=== PATIENT | male | born 1950 ===

== ENCOUNTER 2016-09-20 06:48 | Inpatient (IN) | payer MEDICARE, MEDICAID ==
[2016-09-20 06:48] VITALS: BMI 22.8
--- NOTE | 2016-09-20 08:07 | C.PDOC ---
History Of Present Illness 66 yr old male, brought in via EMS and is accompanied by family members, PMHx of dementia, presents to the ER for increasing agitation, violent behavior which start PUBLICATION DIRECTOR but has resolved now. Patient was discharged from [facility] 1 week ago and is s/p rehab for leg pain. states patient has had occasional episodes of agitation but now they are increasing and worst was PUBLICATION DIRECTOR. states the patient was hitting her and was refusing to get in to the wheel chair and EMS was called. Currently, patient is at baseline. Patient was recently treated for pneumonia. reports non productive cough, residual. Denies fever, nausea, vomiting, decrease appetite or rash. Patient was recently started on aricept. states there is no home health and they had to leave [facility] "due to insurance problems". LIMITED DUE TO DEMENTIA, CLIN COND HX VIA FAMILY VIA TRANS INCR AGITATION, VIOLENT BEHAVIOR ONSET PUBLICATION DIRECTOR, NOW RESOLVED. PT DC FROM [facility] 1 WEEK AGO S/P REHAB FOR LEG PAIN. STATES PT HAS HAD OCC AGITATION BUT NOW W INCREASING FREQ WORST PUBLICATION DIRECTOR. PT HITTING , REFUSED TO GET INTO WC. EMS CALLED. CURRENTLY @ [facility]. RECENT TX FOR PNEUMONIA. NO RECENT FEVER, NV, DEC APPETITE. +CHARGE ENTRY CLERK COUGH, RESIDUAL. RECENTLY STARTED ON ARICEPT. STATES NO HOME HEALTH, HAD TO LEAVE [facility] "DUE TO INSURANCE PROBLEMS" ROS UTO EXAM AO2, NO FOCAL NEURO DEF LUNGS POOR EFFORT NARD CTA B/L NO W/R/R REMAINDER NEG Time Seen by Provider: 09/20/16 07:28 Chief Complaint (Nursing): Medical Clearance History Per: Family () History/Exam Limitations: Clinical Condition Onset/Duration Of Symptoms: Days Past Medical History Reviewed: Historical Data, Nursing Documentation, Vital Signs Vital Signs: Last Vital Signs Temp 98.4 F 09/20/16 09:25 Pulse 71 09/20/16 09:25 Resp 19 09/20/16 09:25 BP 106/69 09/20/16 09:25 Pulse Ox 99 09/20/16 09:55 - Medical History PMH: Anxiety, Benign Prostatic Hyperplasia, CAD, Dementia, Depression, Diabetes (type 2), HTN, Hypercholesterolemia Surgical History: CABG - [facility] GROUP PSYCHOTHERAPY (12/31/15) INDIVIDUAL PSYCHOTHERAPY, COGNITIVE-BEHAVIORAL (12/31/15) Family History: States: No Known Family Hx - Social History Hx Tobacco Use: Yes (heavy smoker) Hx Alcohol Use: No Hx Substance Use: No - Immunization History Hx Tetanus Toxoid Vaccination: No Hx Influenza Vaccination: No Hx Pneumococcal Vaccination: No Review Of Systems Except As Marked, All Systems Reviewed And Found Negative. Review Of Systems: ROS cannot be obtained secondary to pt's inabilty to answer questions. Constitutional: Negative for: Fever Skin: Negative for: Rash Neurological: Positive for: Altered Mental Status Physical Exam - Physical Exam Appears: Well, Non-toxic, No Acute Distress Skin: Warm, Dry, No Rash Head: Atraumatic, Normacephalic Chest: Symmetrical, No Tenderness Cardiovascular: Rhythm Regular, No Murmur Respiratory: No Stridor, No Wheezing, Other (Poor effort. No acute respirtory disorder. ) Gastrointestinal/Abdominal: Normal Exam, Soft, No Tenderness, No Guarding, No Rebound Extremity: Normal ROM, No Swelling Neurological/Psych: Other (AO2. No focal neuro deficits. ) ED Course And Treatment - Laboratory Results Result Diagrams: 09/20/16 08:25 09/20/16 08:25 ECG: Interpreted By Me ECG Rhythm: R BBB ECG Interpretation: No Acute Changes Rate From EC O2 Sat by Pulse Oximetry: 99 Pulse Ox Interpretation: Normal - Other Rad CXR X-Ray: Viewed By Me, Read By Radiologist Interpretation: PROCEDURE: CHEST RADIOGRAPH, 1 VIEW. HISTORY: AMS. COMPARISON: 11/05/2015. FINDINGS: LUNGS: Mild venous congestion. Status post median sternotomy. A suture appears to extend into the right infrahilar region, unchanged since the prior study. Clinical correlation. PLEURA: No pneumothorax or pleural fluid seen. CARDIOVASCULAR: Normal. OSSEOUS STRUCTURES: Degenerative changes in the spine and shoulders. VISUALIZED UPPER ABDOMEN: Normal. OTHER FINDINGS: None. IMPRESSION: Mild venous congestion. Status post median sternotomy. A suture appears to extend into the right infrahilar region, unchanged since the prior study. Clinical correlation. - CT Scan/US CT - Head Other Rad Studies (CT/US): Read By Radiologist, Radiology Report Reviewed CT/US Interpretation: PROCEDURE: CT HEAD WITHOUT CONTRAST. HISTORY: Altered mental status. COMPARISON: None available. TECHNIQUE: Axial computed tomography images were obtained through the head/brain without intravenous contrast. Radiation dose: Total exam DLP = 852 mGy-cm. This CT exam was performed using one or more of the following dose reduction techniques: Automated exposure control, adjustment of the mA and/or kV according to patient size, and/or use of iterative reconstruction technique. FINDINGS: HEMORRHAGE: No intracranial hemorrhage. BRAIN: Scattered focal lucencies in the subcortical and periventricular white matter suggestive for severe chronic microvascular ischemic change. Scattered hypodensities in the right basal ganglia, right thalamus, right internal capsule as well as torres radiata on the right suggestive for lacunar infarcts. Punctate left basal ganglia lacunar infarct noted. VENTRICLES: Prominent ventricles which may be related to atrophy. CALVARIUM: Unremarkable. PARANASAL SINUSES: Prominent mucosal thickening and opacification of the left maxillary sinus. MASTOID AIR CELLS: Unremarkable as visualized. No inflammatory changes. OTHER FINDINGS: Intracranial vascular calcifications noted. Partially calcified pineal gland noted. IMPRESSION: 1. Scattered focal lucencies in the subcortical and periventricular white matter suggestive for severe chronic microvascular ischemic change. 2. Multiple focal areas of low attenuation seen within the right torres radiata, basal ganglia, internal capsule, and thalamus suggestive for lacunar infarcts. Additional small lacunar infarct seen within the left basal ganglia. 3. If focal neurologic deficit persists, consider further evaluation with MRI to exclude acute ischemic change or additional etiology. Progress - Re-Evaluation Re-evaluation Note: 09/20/16 10:06 D/W DR HARRIS WILL ADMIT EXAM UNCH PRIOR - Data Reviewed Data Reviewed: Lab, Diagnostic imaging, EKG, Old records - Continuity of Care Discussed patient case with:: Family-HIPPA compliant, Covering for PMD Medical Decision Making Medical Decision Making: PLAN: * CT - Head * CXR * EKG * VBG * CBC * CMP * Urinalysis Disposition Counseled Patient/Family Regarding: Studies Performed, Diagnosis - Disposition Disposition: HOSPITALIZED Disposition Time: 10:10 Condition: STABLE - POA Present On Arrival: None - Clinical Impression Clinical Impression: Dementia, Agitation - Scribe Statement The provider has reviewed the documentation as recorded by the Frankibscott Cook Provider Attestation: All medical record entries made by the Frankibscott were at my direction and personally dictated by me. I have reviewed the chart and agree that the record accurately reflects my personal performance of the history, physical exam, medical decision making, and the department course for this patient. I have also personally directed, reviewed, and agree with the discharge instructions and disposition. Decision To Admit - Pt Status Changed To: Hospital Disposition Of: Inpatient - Admit Certification Admit to Inpatient:: After my assessment, the patient will require hospitalization for at least two midnights. This is because of the severity of symptoms shown, intensity of services needed, and/or the medical risk in this patient being treated as an outpatient. - InPatient: Physician Admission Certification:: SEE NOTE - . Bed Request Type: Regular Admitting Physician: Lizbeth Harris Patient Diagnosis: Dementia, Agitation
[2016-09-20 08:29] LABS: BASO # 0.1 K/uL (0.0-0.2); BASO % 1.4 % (0.0-2.0); EOS # 0.3 K/uL (0.0-0.7); EOS % 4.9 % (0.0-4.0); HEMATOCRIT 43.1 % (35.0-51.0); LYMPH # 1.8 K/uL (1.0-4.3); MEAN CORPUSCULAR HEMOGLOBIN 28.5 pg (27.0-31.0); MEAN CORPUSCULAR HGB CONC 32.7 g/dL (33.0-37.0); MEAN PLATELET VOLUME 8.4 fL (7.2-11.7); MONO # 0.6 K/uL (0.0-0.8); MONO % 8.8 % (0.0-10.0); NRBC % 0.1 % (0.0-2.0); RED CELL DISTRIBUTION WIDTH 13.9 % (11.5-14.5); WHITE BLOOD COUNT 6.4 K/uL (4.8-10.8)
[2016-09-20 08:42] LABS: CHLORIDE 104 mmol/L (98-107); SODIUM 139 mmol/L (132-148)
[2016-09-20 08:43] LABS: POTASSIUM 4.7 mmol/L (3.6-5.2)
[2016-09-20 08:45] LABS: VENOUS BLOOD GAS BASE EXCESS 0.7 mmol/L (0.0-2.0); VENOUS BLOOD GAS PCO2 54 mmHg (40-60); VENOUS BLOOD PH 7.32 (7.32-7.43)
[2016-09-20 08:45] LABS: ALB/GLOB RATIO 1.1 (1.0-2.1); ALKALINE PHOSPHATASE 74 U/L (38-126); ALT/SGPT 13 U/L (21-72); AST/SGOT 19 U/L (17-59); BILIRUBIN,TOTAL 0.5 mg/dL (0.2-1.3); BLOOD UREA NITROGEN 28 mg/dL (9-20); CALCIUM 9.1 mg/dl (8.6-10.4); CARBON DIOXIDE 24 mmol/L (22-30); GFR AFRICAN-AMERICAN > 60; GLUCOSE,RANDOM 105 mg/dL (75-110); TOTAL PROTEIN 7.4 g/dL (6.3-8.3)
--- NOTE | 2016-09-20 08:55 | CT ---
PROCEDURE: CT HEAD WITHOUT CONTRAST. HISTORY: Altered mental status COMPARISON: None available. TECHNIQUE: Axial computed tomography images were obtained through the head/brain without intravenous contrast. Radiation dose: Total exam DLP = 852 mGy-cm. This CT exam was performed using one or more of the following dose reduction techniques: Automated exposure control, adjustment of the mA and/or kV according to patient size, and/or use of iterative reconstruction technique. FINDINGS: HEMORRHAGE: No intracranial hemorrhage. BRAIN: Scattered focal lucencies in the subcortical and periventricular white matter suggestive for severe chronic microvascular ischemic change. Scattered hypodensities in the right basal ganglia, right thalamus, right internal capsule as well as torres radiata on the right suggestive for lacunar infarcts. Punctate left basal ganglia lacunar infarct noted. VENTRICLES: Prominent ventricles which may be related to atrophy. CALVARIUM: Unremarkable. PARANASAL SINUSES: Prominent mucosal thickening and opacification of the left maxillary sinus. MASTOID AIR CELLS: Unremarkable as visualized. No inflammatory changes. OTHER FINDINGS: Intracranial vascular calcifications noted. Partially calcified pineal gland noted. IMPRESSION: 1. Scattered focal lucencies in the subcortical and periventricular white matter suggestive for severe chronic microvascular ischemic change. 2. Multiple focal areas of low attenuation seen within the right torres radiata, basal ganglia, internal capsule, and thalamus suggestive for lacunar infarcts. Additional small lacunar infarct seen within the left basal ganglia. 3. If focal neurologic deficit persists, consider further evaluation with MRI to exclude acute ischemic change or additional etiology.
[2016-09-20 09:11] LABS: RBC URINE 1 /hpf (0-3); URINE BACTERIA RARE (<OCC); URINE BILIRUBIN NEGATIVE (NEGATIVE); URINE BLOOD NEGATIVE (NEGATIVE); URINE COLOR Yellow (YELLOW); URINE GLUCOSE (UA) NORMAL (Normal); URINE KETONE NEGATIVE (NEGATIVE); URINE LEUKOCYTE ESTERASE NEG Leu/uL (Negative); URINE PROTEIN NEGATIVE (NEGATIVE); URINE UROBILINOGEN NORMAL mg/dL (0.2-1.0); WBC URINE < 1 /hpf (0-5)
--- NOTE | 2016-09-20 09:38 | RAD ---
PROCEDURE: CHEST RADIOGRAPH, 1 VIEW HISTORY: AMS COMPARISON: 11/05/2015 FINDINGS: LUNGS: Mild venous congestion. Status post median sternotomy. A suture appears to extend into the right infrahilar region, unchanged since the prior study. Clinical correlation. PLEURA: No pneumothorax or pleural fluid seen. CARDIOVASCULAR: Normal. OSSEOUS STRUCTURES: Degenerative changes in the spine and shoulders. VISUALIZED UPPER ABDOMEN: Normal. OTHER FINDINGS: None. IMPRESSION: Mild venous congestion. Status post median sternotomy. A suture appears to extend into the right infrahilar region, unchanged since the prior study. Clinical correlation.
--- NOTE | 2016-09-20 13:54 | CARD ---
APPROVED REPORT EKG Measurement Heart [id number] <Conclusion> Normal sinus rhythm Left axis deviation Low voltage QRS Incomplete right bundle branch block Inferior infarct, age undetermined Cannot rule out Anterior infarct, age undetermined Abnormal ECG
[2016-09-20 13:55] VITALS: RESP 20
--- NOTE | 2016-09-20 17:34 | CP.PCM.HP ---
<Lisseth Abarca - Last Filed: 09/20/16 17:41> History of Present Illness - History of Present Illness History of Present Illness: CC - Per "He was crying a lot this morning and was agitated" 66 yr old male, brought in via EMS and is accompanied by , PMHx of dementia , presents to the ER for increasing agitation, violent behavior which start CORPORATE EXECUTIVE CHEF but has resolved now. Patient was discharged from [facility] 1 week ago and is s/p rehab for leg pain. states patient has had occasional episodes of agitation but now they are increasing and worst was CORPORATE EXECUTIVE CHEF. states the patient was hitting her and was refusing to get in to the wheel chair and EMS was called. Currently, patient is at baseline. Patient was recently treated for pneumonia. reports non productive cough, residual. Denies fever, nausea, vomiting, decrease appetite or rash. Patient was recently started on aricept. states there is no home health and they had to leave [facility] "due to insurance problems". She was worried about him excessively crying in the morning and was requesting psychiatic eval. She states they saw Dr. Mcnair at [place] but do not have anyone to follow up with. Per patient is not ambulatory and he needs max assist to daily activities. He is able to feed himself. PMHx - Dementia HTN, DM2, BPH, Hyperlipidemia, dementia, CVAs (pts and unaware of this diagnosis but CT head suggests otherwise) Surg - CABG in 2008 at [facility] Meds - Trazodone 50mg PO HS, Flomax 0.4 mg PO HS, Actos 30mg PO daily, Remeron 7.5 mg PO HS, , Linagliptin/Metformin HCL 2.5mg/1000mg PO BID, Levemir 10 U SC HS, Humalog 3 U ACTID, Aricept 10mg PO HS, Lipitor 20mg PO daily, Aspirin 81 mg PO daily, Aricept 10mg PO HS Allergies - shell fish Fam Hx - father had "heart issues" Social - used to smoke all of his life 1-2 packs a day quit 2 months ago, denies alcohol use or current drug use, hx of cocaine use many years ago. 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 denies being abused/tortured. states he was jailed "because of the government". pt has a 9th grade education, is on disability. 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 Present on Admission - Present on Admission Any Indicators Present on Admission: No Review of Systems - Review of Systems Systems not reviewed;Unavailable: Acuity of Condition, Dementia Review of Systems: unable to obtain full ROS - Cardiovascular Cardiovascular: absent: Chest Pain, Chest Pain at Rest, Palpitations - Respiratory Respiratory: absent: Cough, Dyspnea, Dyspnea on Exertion - Gastrointestinal Gastrointestinal: absent: Abdominal Pain, Constipation, Diarrhea, Nausea, Vomiting Past Patient History - Past Medical History & Family History Past Medical History?: Yes - Past Social History Smoking Status: Current Some Days Smoker - CARDIAC Hx Hypercholesterolemia: Yes Hx Hypertension: Yes - PULMONARY Hx Tuberculosis: No - NEUROLOGICAL Hx Dementia: Yes - ENDOCRINE/METABOLIC Hx Endocrine Disorders: Yes Hx Diabetes Mellitus Type 2: Yes - HEMATOLOGICAL/ONCOLOGICAL Hx Human Immunodeficiency Virus (HIV): No - INTEGUMENTARY Hx Dermatological Problems: No - MUSCULOSKELETAL/RHEUMATOLOGICAL Hx Musculoskeletal Disorders: No Hx Falls: Yes - GASTROINTESTINAL Hx Gastrointestinal Disorders: Yes Hx Diarrhea: Yes Hx Vomiting: Yes - GENITOURINARY/GYNECOLOGICAL Hx Sexually Transmitted Disorders: No - PSYCHIATRIC Hx Anxiety: Yes Hx Depression: Yes Hx Substance Use: No - SURGICAL HISTORY Hx Coronary Artery Bypass Graft: Yes - ANESTHESIA Hx Anesthesia: Yes Hx Anesthesia Reactions: No Hx Malignant Hyperthermia: No Meds Allergies/Adverse Reactions: Allergies Allergy/AdvReac Type Severity Reaction Status Date / Time shellfish derived Allergy RASH Verified 08/08/16 14:36 Physical Exam - Constitutional Appears: Non-toxic, No Acute Distress, Unkempt, Cachectic, Chronically Ill - Head Exam Head Exam: ATRAUMATIC, NORMAL INSPECTION - Eye Exam Eye Exam: EOMI, PERRL Pupil Exam: NORMAL ACCOMODATION - ENT Exam ENT Exam: Mucous Membranes Moist - Respiratory Exam Respiratory Exam: Clear to Auscultation Bilateral, NORMAL BREATHING PATTERN. absent: Accessory Muscle Use, Decreased Breath Sounds, Rales, Rhonchi, Wheezes, Respiratory Distress - Cardiovascular Exam Cardiovascular Exam: REGULAR RHYTHM, +S1, +S2 - GI/Abdominal Exam GI & Abdominal Exam: Normal Bowel Sounds, Soft. absent: Distended, Firm, Guarding, Tenderness - Extremities Exam Extremities exam: Positive for: normal inspection. Negative for: calf tenderness, pedal edema - Back Exam Back exam: NORMAL INSPECTION. absent: CVA tenderness (L), CVA tenderness (R), paraspinal tenderness - Neurological Exam Neurological exam: Alert Additional comments: only oriented to self, per is baseline - Psychiatric Exam Psychiatric exam: Normal Affect, Normal Mood - Skin Skin Exam: Dry, Intact, Normal Color, Warm Results - Vital Signs Recent Vital Signs: Last Vital Signs Temp 98.2 F 09/20/16 15:00 Pulse 81 09/20/16 15:00 Resp 20 09/20/16 15:00 BP 108/65 09/20/16 15:00 Pulse Ox 95 09/20/16 15:00 - Labs Result Diagrams: 09/20/16 08:25 09/20/16 08:25 Labs: Laboratory Results - last 24 hr 09/20/16 09/20/16 13:29 16:24 POC Glucose (mg/dL) 199 H 267 H Assessment & Plan - Assessment and Plan (Free Text) Assessment: Dementia Not agitated, oriented to self only, needs placement f/u Social work f/u Psych evlacey, Dr. Morales consulted, help appreciated Remeron 7.5 mg PO HS Aricept 10mg PO HS Chest X ray negative for active disease - no evidence of infiltrate Hx CVAs pts and unaware of this diagnosis but CT head suggests otherwise Head CT - 1. Scattered focal luencies in the subcortical and periventrocular white matter suggestive for severe chronic microvascular ischemia change 2. Multiple focal fer of low attenuation seen within the right torres radiata, basal ganglia, internal capsule, and thalamus suggestive of lucanar infarcts. small infarct in left basal ganglia Seizure and aspiration precautions DM Linagliptin/Metformin HCL 2.5mg/1000mg PO BID - hold while in hospital Actos 30mg PO daily Levemir/Lantus 10 U SC HS Humalog 3 U ACTID Accuchecks ISS f/u HBA1c Hypertension Metoprolol Succinate 25mg PO daily Monitor BP Consider adding NEDA inhibitor (pt.diabetic) HLD Crestor 10mg PO HS f/u Lipid panel Hx. CABG Aspirin 81 mg PO daily BPH Flomax 0.4 mg PO HS, Prophylactic Measures Pepcid 20mg PO BID Heparin 5, 000 U SC Q8 PT/OT Social work <Winston Dale - Last Filed: 09/20/16 18:11> Results - Vital Signs Recent Vital Signs: Last Vital Signs Temp 98.2 F 09/20/16 15:00 Pulse 81 09/20/16 15:00 Resp 20 09/20/16 15:00 BP 108/65 09/20/16 15:00 Pulse Ox 95 09/20/16 15:00 - Labs Result Diagrams: 09/20/16 08:25 09/20/16 08:25 Labs: Laboratory Results - last 24 hr 09/20/16 09/20/16 13:29 16:24 POC Glucose (mg/dL) 199 H 267 H Attending/Attestation - Attestation I have personally seen and examined this patient.: Yes I have fully participated in the care of the patient.: Yes I have reviewed all pertinent clinical information: Yes Notes (Text): 09/20/16 18:10 Patient was seen and examined at bedside with the resident Patient medical record. I discussed the plan of care with the admitting resident I agree with the assessment and plan as documented by the resident.
[2016-09-20] MEDS: (Novolog) Insulin Aspart, Recombinant 100 u/ml 10 ml vial SC SCH (18:09)
[2016-09-20] MEDS: Insulin Detemir 100 units/ml Vial (Levemir) SC SCH (21:48)
[2016-09-21 07:28] LABS: BASO # 0.1 K/uL (0.0-0.2); BASO % 1.2 % (0.0-2.0); EOS # 0.3 K/uL (0.0-0.7); EOS % 3.9 % (0.0-4.0); LYMPH # 1.8 K/uL (1.0-4.3); LYMPH % 26.3 % (20.0-40.0); MEAN CORPUSCULAR HEMOGLOBIN 28.7 pg (27.0-31.0); MEAN PLATELET VOLUME 8.6 fL (7.2-11.7); MONO # 0.7 K/uL (0.0-0.8); MONO % 9.5 % (0.0-10.0); RED CELL DISTRIBUTION WIDTH 13.7 % (11.5-14.5)
[2016-09-21 07:49] LABS: CHLORIDE 106 mmol/L (98-107)
[2016-09-21 07:50] LABS: POTASSIUM 4.2 mmol/L (3.6-5.2); SODIUM 139 mmol/L (132-148)
[2016-09-21 07:52] LABS: AST/SGOT 17 U/L (17-59); BILIRUBIN,TOTAL 0.5 mg/dL (0.2-1.3); BLOOD UREA NITROGEN 25 mg/dL (9-20); CARBON DIOXIDE 24 mmol/L (22-30); CHOLESTEROL 152 mg/dL (0-199); GFR AFRICAN-AMERICAN > 60; TOTAL PROTEIN 6.8 g/dL (6.3-8.3)
[2016-09-21 07:53] LABS: ALKALINE PHOSPHATASE 78 U/L (38-126); ALT/SGPT 20 U/L (21-72); GLUCOSE,RANDOM 113 mg/dL (75-110); MAGNESIUM 1.6 mg/dL (1.6-2.3); PHOSPHOROUS 4.5 mg/dL (2.5-4.5)
[2016-09-21 08:24] LABS: THYROID STIMULATING HORMONE 1.26 mIU/L (0.46-4.68)
[2016-09-21] MEDS: (Novolog) Insulin Aspart, Recombinant 100 u/ml 10 ml vial SC SCH ×3 (08:26→17:28)
[2016-09-21] MEDS: Sodium Chloride 0.9% 1,000 ML IV SCH ×2 (11:01→21:44)
--- NOTE | 2016-09-21 12:47 | PCM.PSYCH ---
Initial Psychiatric Evaluation - Initial Psychiatric Evaluation Chief Complaint (in patient's own words): "Leave me alone" History of Present Illness and Precipitating Events: The pt is seen, chart reviewed and case discussed. The consult was requested for his cognition and mood sxs. Steam Plant Records Clerk also spoke to his , Belkis, through a geological technician. He was staying at [facility] for 4 weeks and mn'ed after "insurance denied" last Saturday. Since he was still "sick" his brought him back to ER. He is a 66 yo [place]-descent (came here in 1979) LM, with 2 adult daughters (both in [facility]), on disability. Lives with his . He was very uncooperative, evasive and irate. Plus, he was previously dx'ed with dementia and he was not fully aware of what was going on. His said that he was "very depressed" for a while and was seen by psych in [place] when he was admitted in August but meds did not help yet. He was not talking much, crying, claiming he would not get better all the time, sleeping a lot, not shaving or showering. He does NOT have a trauma hx, no drug/alcohol use and she did not hear him talk to self or say he was hearing voices or paranoid. And he was not suicidal. However, sounds like he gets delirious at times or has mood swings as he gets agitated and even hit his . Past psych hx: Outpt tx for depression and dementia. No zuleyma attempt or admission Family psych hx: depression Medical hx: Benign Prostatic Hyperplasia, CAD s/p CABG, Diabetes (type 2), HTN, Hypercholesterolemia Current Medications: Active Medications Generic Name Dose Route Start Last Admin Trade Name Daleq PRN Reason Stop Dose Admin Aspirin 81 mg 09/21/16 10:00 09/21/16 10:57 Ecotrin PO 81 mg DAILY MARCIN Administration Donepezil HCl 10 mg 09/20/16 22:00 09/20/16 21:47 Aricept PO 10 mg HS MARCIN Administration Famotidine 20 mg 09/20/16 18:00 09/21/16 10:57 Pepcid PO 20 mg BID MARCIN Administration Heparin Sodium (Porcine) 5,000 units 09/20/16 14:00 09/21/16 05:53 Heparin SC 5,000 units Q8 MARCIN Administration Sodium Chloride 1,000 mls @ 100 mls/hr 09/21/16 09:00 09/21/16 11:01 Sodium Chloride 0.9% IV 100 mls/hr .Q10H MARCIN Administration Insulin Aspart 3 unit 09/20/16 16:30 09/21/16 12:42 Novolog SC 3 unit ACTID MARCIN Administration Insulin Detemir 10 unit 09/20/16 22:00 09/20/16 21:48 Levemir SC 10 unit HS MARCIN Administration Mirtazapine 7.5 mg 09/20/16 22:00 09/20/16 21:52 Remeron PO 7.5 mg HS MARCIN Administration Pioglitazone HCl 30 mg 09/21/16 10:00 09/21/16 11:20 Actos PO 30 mg DAILY MARCIN Administration Rosuvastatin Calcium 10 mg 09/20/16 22:00 09/20/16 21:47 Crestor PO 10 mg HS MARCIN Administration Tamsulosin HCl 0.4 mg 09/20/16 22:00 09/20/16 21:47 Flomax PO 0.4 mg HS MARCIN Administration Past Psychiatric History - Past Psychiatric History Previous Treatment History: Inpatient Pertinent Medical Hx (Current Medical&Sleep Prob, Allergies): Allergies Allergy/AdvReac Type Severity Reaction Status Date / Time shellfish derived Allergy RASH Verified 08/08/16 14:36 Linagliptin/Metformin HCl [Jentadueto 2.5 mg-1000 mg Tab] 1 tab PO BID 11/05/15 Metoprolol Succinate [Toprol XL] 25 mg PO DAILY 11/05/15 Pioglitazone HCl [Actos] 30 mg PO DAILY 11/05/15 Aspirin [Ecotrin] 81 mg PO DAILY #0 tabec 01/10/16 Donepezil [Aricept] 10 mg PO HS #0 tab 01/10/16 traZODone [Desyrel] 50 mg PO HS PRN 01/11/16 Atorvastatin [Lipitor] 20 mg PO DAILY 08/08/16 Tamsulosin [Flomax] 0.4 mg PO HS 08/08/16 Insulin Detemir [Levemir] 10 units SC HS vial 08/14/16 Mirtazapine [Remeron] 7.5 mg PO HS tab 08/14/16 Review of Systems - Psychiatric Psychiatric: Abnormal Sleep Pattern, Anhedonia, Anxiety, Behavioral Changes, Change in Appetite, Confusion, Depression, Difficulty Concentrating, Irritability, Mood Swings. absent: Hallucinations, Homicidal Ideation, Suicidal Ideation Mental Status Examination - Personal Presentation Personal Presentation: Looks older than stated age - Affect Affect: Constricted - Motor Activity Motor Activity: Psychomotor Retardation - Reliability in Providing Information Reliability in Providing Information: Poor, due to altered mood, Poor, due to cognitve impairment - Speech Speech: Disorganized - Mood Mood: Depressed, Anxious - Formal Thought Process Formal Thought Process: Loosening of associations - Cognitive Functions Orientation: Person Sensorium: Drowsy Attention/Concentration: Easily distracted Abstract Thinking: [place] Estimate of Intelligence: Below average Judgement: Imparied, as evidence by: Lack of insight into illness Memory: Recent impaired, as evidence by: Inability to recall events of the day, Remote impaired as evidenced by: Inability to recall sig life events - Risk Risk: Elopement, Diminished functioning - Strength & Assets Inventory Strength & Assets Inventory: Family support - Limitations Limitations: Other DSM 5 DX - DSM 5 DSM 5 Diagnosis: Major depressive d/o - single, severe Dementia - unspecified - Recommended/Plan of Treatment Treatment Recommendations and Plan of Treatment: Depression Start Lexapro Continue remeron Support and psychoed Dementia: Continue Aricept lexapro should help Close observation Frequent support and orientation should apply for guardianship check vitamin levels, tsh, rpr... 33 min
--- NOTE | 2016-09-21 17:23 | CP.PCM.PN ---
<Lisseth Abarca - Last Filed: 09/21/16 17:20> Subjective - Date & Time of Evaluation Date of Evaluation: 09/21/16 Time of Evaluation: 08:00 - Subjective Subjective: Patient seen and examined at bedside this morning. He is oriented only to himself. He denied any chest pain, SOB, headaches, fever or chills. He had no other complaints. Complete ROS unable to obtain due to patient's mental status. He is awaiting a psych evaluation. Objective - Vital Signs/Intake and Output Vital Signs (last 24 hours): Temp Pulse Resp BP Pulse Ox 98.0 F 78 20 110/65 96 09/21/16 16:00 09/21/16 16:00 09/21/16 16:00 09/21/16 16:00 09/21/16 16:00 Intake and Output: 09/21/16 09/21/16 06:59 18:59 Intake Total 180 Balance 180 - Medications Medications: Current Medications Aspirin (Ecotrin) 81 mg PO DAILY [facility] Last Admin: 09/21/16 10:57 Dose: 81 mg Donepezil HCl (Aricept) 10 mg PO [facility] Last Admin: 09/20/16 21:47 Dose: 10 mg Escitalopram Oxalate (Lexapro) 5 mg PO DAILY [facility] Last Admin: 09/21/16 14:32 Dose: 5 mg Famotidine (Pepcid) 20 mg PO BID [facility] Last Admin: 09/21/16 10:57 Dose: 20 mg Haloperidol (Haldol) 2 mg PO Q2 PRN Heparin Sodium (Porcine) (Heparin) 5,000 units SC Q8 [facility] Last Admin: 09/21/16 14:27 Dose: 5,000 units Sodium Chloride (Sodium Chloride 0.9%) 1,000 mls @ 100 mls/hr IV .Q10H [facility] Last Admin: 09/21/16 11:01 Dose: 100 mls/hr Insulin Aspart (Novolog) 3 unit SC ACTID [facility] Last Admin: 09/21/16 12:42 Dose: 3 unit Insulin Detemir (Levemir) 10 unit SC HS [facility] Last Admin: 09/20/16 21:48 Dose: 10 unit Mirtazapine (Remeron) 7.5 mg PO [facility] Last Admin: 09/20/16 21:52 Dose: 7.5 mg Pioglitazone HCl (Actos) 30 mg PO DAILY [facility] Last Admin: 09/21/16 11:20 Dose: 30 mg Rosuvastatin Calcium (Crestor) 10 mg PO [facility] Last Admin: 09/20/16 21:47 Dose: 10 mg Tamsulosin HCl (Flomax) 0.4 mg PO [facility] Last Admin: 09/20/16 21:47 Dose: 0.4 mg - Labs Labs: 09/21/16 06:58 09/21/16 06:58 - Constitutional Appears: Non-toxic, No Acute Distress, Cachectic, Chronically Ill - Head Exam Head Exam: ATRAUMATIC, NORMAL INSPECTION - Eye Exam Eye Exam: EOMI, PERRL Pupil Exam: NORMAL ACCOMODATION - ENT Exam ENT Exam: Mucous Membranes Dry - Respiratory Exam Respiratory Exam: Clear to Ausculation Bilateral, NORMAL BREATHING PATTERN. absent: Accessory Muscle Use, Rales, Wheezes, Respiratory Distress - Cardiovascular Exam Cardiovascular Exam: REGULAR RHYTHM, +S1, +S2 - GI/Abdominal Exam GI & Abdominal Exam: Soft, Normal Bowel Sounds. absent: Distended, Firm, Guarding, Tenderness - Extremities Exam Extremities Exam: Normal Inspection. absent: Calf Tenderness - Back Exam Back Exam: NORMAL INSPECTION. absent: CVA tenderness (L), CVA tenderness (R), paraspinal tenderness - Neurological Exam Neurological Exam: Alert Additional comments: bedbond, only oriented to person - Psychiatric Exam Psychiatric exam: Depressed, Flat Affect - Skin Skin Exam: Dry, Intact, Normal Color, Warm Assessment and Plan - Assessment and Plan (Free Text) Assessment: Dementia Not agitated, oriented to self only, needs placement f/u Social work f/u Psych haile, Dr. Morales consulted, help appreciated Remeron 7.5 mg PO HS Aricept 10mg PO HS Chest X ray negative for active disease - no evidence of infiltrate Hx CVAs pts and unaware of this diagnosis but CT head suggests otherwise Head CT - 1. Scattered focal luencies in the subcortical and periventrocular white matter suggestive for severe chronic microvascular ischemia change 2. Multiple focal fer of low attenuation seen within the right torres radiata, basal ganglia, internal capsule, and thalamus suggestive of lucanar infarcts. small infarct in left basal ganglia Seizure and aspiration precautions DM Linagliptin/Metformin HCL 2.5mg/1000mg PO BID - hold while in hospital Actos 30mg PO daily Levemir/Lantus 10 U SC HS Humalog 3 U ACTID Accuchecks ISS HBA1c 8.7 Hypertension Metoprolol Succinate 25mg PO daily Monitor BP Consider adding NEDA inhibitor (pt.diabetic) HLD Crestor 10mg PO HS f/u Lipid panel Hx. CABG Aspirin 81 mg PO daily BPH Flomax 0.4 mg PO HS, Prophylactic Measures Pepcid 20mg PO BID Heparin 5, 000 U SC Q8 PT/OT Social work <Suyapa,Winston M - Last Filed: 09/21/16 17:33> Objective - Vital Signs/Intake and Output Vital Signs (last 24 hours): Temp Pulse Resp BP Pulse Ox 98.0 F 78 20 110/65 96 09/21/16 16:00 09/21/16 16:00 09/21/16 16:00 09/21/16 16:00 09/21/16 16:00 Intake and Output: 09/21/16 09/21/16 06:59 18:59 Intake Total 180 Balance 180 - Medications Medications: Current Medications Aspirin (Ecotrin) 81 mg PO DAILY [facility] Last Admin: 09/21/16 10:57 Dose: 81 mg Donepezil HCl (Aricept) 10 mg PO HS [facility] Last Admin: 09/20/16 21:47 Dose: 10 mg Escitalopram Oxalate (Lexapro) 5 mg PO DAILY [facility] Last Admin: 09/21/16 14:32 Dose: 5 mg Famotidine (Pepcid) 20 mg PO BID [facility] Last Admin: 09/21/16 17:29 Dose: 20 mg Haloperidol (Haldol) 2 mg PO Q2 PRN Heparin Sodium (Porcine) (Heparin) 5,000 units SC Q8 [facility] Last Admin: 09/21/16 14:27 Dose: 5,000 units Sodium Chloride (Sodium Chloride 0.9%) 1,000 mls @ 100 mls/hr IV .Q10H [facility] Last Admin: 09/21/16 11:01 Dose: 100 mls/hr Insulin Aspart (Novolog) 3 unit SC ACTID [facility] Last Admin: 09/21/16 17:28 Dose: 3 unit Insulin Detemir (Levemir) 10 unit SC HS [facility] Last Admin: 09/20/16 21:48 Dose: 10 unit Mirtazapine (Remeron) 7.5 mg PO HS [facility] Last Admin: 09/20/16 21:52 Dose: 7.5 mg Pioglitazone HCl (Actos) 30 mg PO DAILY [facility] Last Admin: 09/21/16 11:20 Dose: 30 mg Rosuvastatin Calcium (Crestor) 10 mg PO HS [facility] Last Admin: 09/20/16 21:47 Dose: 10 mg Tamsulosin HCl (Flomax) 0.4 mg PO HS [facility] Last Admin: 09/20/16 21:47 Dose: 0.4 mg - Labs Labs: 09/21/16 06:58 09/21/16 06:58 Attending/Attestation - Attestation I have personally seen and examined this patient.: Yes I have fully participated in the care of the patient.: Yes I have reviewed all pertinent clinical information, including history, physical exam and plan: Yes Notes (Text): 09/21/16 17:32 Patient was seen and examined at bedside with the resident Continue current management I discussed the plan of care with the resident Distress planning to subacute rehabilitation center I agree with the above history and physical and assessment/plan by the resident
[2016-09-21] MEDS: Insulin Detemir 100 units/ml Vial (Levemir) SC SCH (21:46)
[2016-09-22] MEDS: Sodium Chloride 0.9% 1,000 ML IV SCH ×2 (07:00→15:53)
[2016-09-22] MEDS: (Novolog) Insulin Aspart, Recombinant 100 u/ml 10 ml vial SC SCH ×3 (08:08→17:22)
[2016-09-22 08:16] LABS: BASO # 0.1 K/uL (0.0-0.2); BASO % 1.7 % (0.0-2.0); EOS # 0.3 K/uL (0.0-0.7); HEMATOCRIT 39.9 % (35.0-51.0); LYMPH # 1.7 K/uL (1.0-4.3); MEAN CELL VOLUME 87.3 fL (80.0-94.0); MEAN CORPUSCULAR HEMOGLOBIN 28.6 pg (27.0-31.0); MEAN CORPUSCULAR HGB CONC 32.8 g/dL (33.0-37.0); MEAN PLATELET VOLUME 8.6 fL (7.2-11.7); MONO # 0.5 K/uL (0.0-0.8); MONO % 8.5 % (0.0-10.0); RED CELL DISTRIBUTION WIDTH 14.2 % (11.5-14.5); WHITE BLOOD COUNT 6.1 K/uL (4.8-10.8)
[2016-09-22 08:37] LABS: CHLORIDE 110 mmol/L (98-107); SODIUM 144 mmol/L (132-148)
[2016-09-22 08:38] LABS: POTASSIUM 4.1 mmol/L (3.6-5.2)
[2016-09-22 08:40] LABS: ALB/GLOB RATIO 1.1 (1.0-2.1); ALKALINE PHOSPHATASE 71 U/L (38-126); AST/SGOT 17 U/L (17-59); BILIRUBIN,TOTAL 0.4 mg/dL (0.2-1.3); BLOOD UREA NITROGEN 18 mg/dL (9-20); CARBON DIOXIDE 25 mmol/L (22-30); GFR AFRICAN-AMERICAN > 60; GLUCOSE,RANDOM 99 mg/dL (75-110); TOTAL PROTEIN 6.5 g/dL (6.3-8.3)
[2016-09-22 08:41] LABS: ALT/SGPT 15 U/L (21-72); CALCIUM 8.9 mg/dl (8.6-10.4); MAGNESIUM 1.8 mg/dL (1.6-2.3); PHOSPHOROUS 3.7 mg/dL (2.5-4.5)
--- NOTE | 2016-09-22 16:24 | CP.PCM.PN ---
<Aaron Gifford H - Last Filed: 09/22/16 21:13> Subjective - Date & Time of Evaluation Date of Evaluation: 09/22/16 Time of Evaluation: 10:00 - Subjective Subjective: Dr. Dale service: Patient seen in room with present. I spoke with patient's daughter over the phone about placement issue. Unable to obtain history from patient due to his dementia. Objective - Vital Signs/Intake and Output Vital Signs (last 24 hours): Temp Pulse Resp BP Pulse Ox 98.2 F 77 20 144/75 95 09/22/16 15:00 09/22/16 15:00 09/22/16 15:00 09/22/16 15:00 09/22/16 15:00 Intake and Output: 09/22/16 09/22/16 06:59 18:59 Intake Total 2200 1100 Output Total 400 Balance 1800 1100 - Medications Medications: Current Medications Aspirin (Ecotrin) 81 mg PO DAILY [facility] Last Admin: 09/22/16 10:43 Dose: 81 mg Donepezil HCl (Aricept) 10 mg PO [facility] Last Admin: 09/21/16 21:43 Dose: 10 mg Escitalopram Oxalate (Lexapro) 5 mg PO DAILY [facility] Last Admin: 09/22/16 10:44 Dose: 5 mg Famotidine (Pepcid) 20 mg PO BID [facility] Last Admin: 09/22/16 10:43 Dose: 20 mg Haloperidol (Haldol) 2 mg PO Q2 PRN Heparin Sodium (Porcine) (Heparin) 5,000 units SC Q8 [facility] Last Admin: 09/22/16 13:28 Dose: 5,000 units Sodium Chloride (Sodium Chloride 0.9%) 1,000 mls @ 100 mls/hr IV .Q10H [facility] Last Admin: 09/22/16 15:53 Dose: 100 mls/hr Insulin Aspart (Novolog) 3 unit SC ACTID [facility] Last Admin: 09/22/16 12:12 Dose: 3 unit Insulin Detemir (Levemir) 10 unit SC HS [facility] Last Admin: 09/21/16 21:46 Dose: 10 unit Mirtazapine (Remeron) 7.5 mg PO HS [facility] Last Admin: 09/21/16 21:44 Dose: 7.5 mg Pioglitazone HCl (Actos) 30 mg PO DAILY [facility] Last Admin: 09/22/16 10:44 Dose: 30 mg Rosuvastatin Calcium (Crestor) 10 mg PO HS [facility] Last Admin: 09/21/16 21:43 Dose: 10 mg Tamsulosin HCl (Flomax) 0.4 mg PO HS [facility] Last Admin: 09/21/16 21:43 Dose: 0.4 mg - Labs Labs: 09/22/16 07:58 09/22/16 07:58 - Constitutional Appears: Non-toxic, No Acute Distress, Unkempt - Head Exam Head Exam: NORMAL INSPECTION - Eye Exam Eye Exam: Normal appearance Pupil Exam: NORMAL ACCOMODATION - Respiratory Exam Respiratory Exam: Clear to Ausculation Bilateral. absent: Rales, Rhonchi, Wheezes - Cardiovascular Exam Cardiovascular Exam: REGULAR RHYTHM, RRR, +S1, +S2. absent: Gallop, Rubs - GI/Abdominal Exam GI & Abdominal Exam: Soft, Normal Bowel Sounds. absent: Tenderness - Extremities Exam Extremities Exam: Normal Inspection. absent: Pedal Edema - Neurological Exam Neurological Exam: Alert. absent: Oriented x3 - Psychiatric Exam Psychiatric exam: Normal Affect, Normal Mood - Skin Skin Exam: Normal Color Assessment and Plan - Assessment and Plan (Free Text) Assessment: Dementia 09/22: Patient is still pending placement, monitor for agitation Not agitated, oriented to self only, needs placement f/u Social work f/u Psych Dr. Andrew be consulted, help appreciated Remeron 7.5 mg PO HS Aricept 10mg PO HS Chest X ray negative for active disease - no evidence of infiltrate Hx CVAs pts and unaware of this diagnosis but CT head suggests otherwise Head CT - 1. Scattered focal luencies in the subcortical and periventrocular white matter suggestive for severe chronic microvascular ischemia change 2. Multiple focal fer of low attenuation seen within the right torres radiata, basal ganglia, internal capsule, and thalamus suggestive of lucanar infarcts. small infarct in left basal ganglia Seizure and aspiration precautions DM Linagliptin/Metformin HCL 2.5mg/1000mg PO BID - hold while in hospital Actos 30mg PO daily Levemir/Lantus 10 U SC HS Humalog 3 U ACTID Accuchecks ISS HBA1c 8.7 Hypertension Metoprolol Succinate 25mg PO daily Monitor BP Consider adding NEDA inhibitor (pt.diabetic) HLD Crestor 10mg PO HS f/u Lipid panel Hx. CABG Aspirin 81 mg PO daily BPH Flomax 0.4 mg PO HS, Prophylactic Measures Pepcid 20mg PO BID Heparin 5, 000 U SC Q8 PT/OT Social work <Winston Dale - Last Filed: 09/23/16 14:04> Objective - Vital Signs/Intake and Output Vital Signs (last 24 hours): Temp Pulse Resp BP Pulse Ox 98.9 F 92 H 20 158/83 H 95 09/23/16 08:20 09/23/16 08:20 09/23/16 08:20 09/23/16 08:20 09/23/16 08:20 Intake and Output: 09/23/16 09/23/16 06:59 18:59 Intake Total 2150 Balance 2150 - Medications Medications: Current Medications Aspirin (Ecotrin) 81 mg PO DAILY [facility] Last Admin: 09/23/16 10:33 Dose: 81 mg Donepezil HCl (Aricept) 10 mg PO HS [facility] Last Admin: 09/22/16 21:55 Dose: 10 mg Escitalopram Oxalate (Lexapro) 5 mg PO DAILY [facility] Last Admin: 09/23/16 10:33 Dose: 5 mg Famotidine (Pepcid) 20 mg PO BID [facility] Last Admin: 09/23/16 10:33 Dose: 20 mg Haloperidol (Haldol) 2 mg PO Q2 PRN Heparin Sodium (Porcine) (Heparin) 5,000 units SC Q8 [facility] Last Admin: 09/23/16 13:36 Dose: 5,000 units Sodium Chloride (Sodium Chloride 0.9%) 1,000 mls @ 100 mls/hr IV .Q10H [facility] Last Admin: 09/23/16 11:15 Dose: Not Given Insulin Aspart (Novolog) 3 unit SC ACTID [facility] Last Admin: 09/23/16 13:08 Dose: 3 unit Insulin Detemir (Levemir) 10 unit SC HS [facility] Last Admin: 09/22/16 21:56 Dose: 10 unit Mirtazapine (Remeron) 7.5 mg PO HS [facility] Last Admin: 09/22/16 21:57 Dose: 7.5 mg Pioglitazone HCl (Actos) 30 mg PO DAILY [facility] Last Admin: 09/23/16 10:33 Dose: 30 mg Rosuvastatin Calcium (Crestor) 10 mg PO HS [facility] Last Admin: 09/22/16 21:56 Dose: 10 mg Tamsulosin HCl (Flomax) 0.4 mg PO HS [facility] Last Admin: 09/22/16 21:56 Dose: 0.4 mg - Labs Labs: 09/23/16 11:14 09/23/16 11:14 Attending/Attestation - Attestation I have personally seen and examined this patient.: Yes I have fully participated in the care of the patient.: Yes I have reviewed all pertinent clinical information, including history, physical exam and plan: Yes Notes (Text): 09/23/16 13:59 Patient was seen and examined at bedside is present at bedside Patient appears comfortable and does not appear to be in any acute distress at this time. Psych evaluation seen and appreciated Discharge planning to subacute rehabilitation center I discussed the plan of care with the resident and agree with the above history and physical and assessment/plan but the resident.
[2016-09-22] MEDS: Insulin Detemir 100 units/ml Vial (Levemir) SC SCH (21:56)
[2016-09-23] MEDS: Sodium Chloride 0.9% 1,000 ML IV SCH ×2 (04:00→11:15)
--- NOTE | 2016-09-23 04:04 | CP.PCM.PN ---
<Landon Palumbo - Last Filed: 09/23/16 07:20> Subjective - Date & Time of Evaluation Date of Evaluation: 09/23/16 Time of Evaluation: 03:59 - Subjective Subjective: PGY-1 medicine progress note for Dr. Dale's service: Patient seen and examined at bedside. Nursing reports no acute events overnight. Pt oriented to self only. Accurate ROS unobtainable due to pts condition. Objective - Vital Signs/Intake and Output Vital Signs (last 24 hours): Temp Pulse Resp BP Pulse Ox 97.5 F L 80 20 137/72 95 09/23/16 00:00 09/23/16 00:00 09/23/16 00:00 09/23/16 00:00 09/23/16 00:00 Intake and Output: 09/22/16 09/23/16 18:59 06:59 Intake Total 1100 1150 Balance 1100 1150 - Medications Medications: Current Medications Aspirin (Ecotrin) 81 mg PO DAILY [facility] Last Admin: 09/22/16 10:43 Dose: 81 mg Donepezil HCl (Aricept) 10 mg PO HS [facility] Last Admin: 09/22/16 21:55 Dose: 10 mg Escitalopram Oxalate (Lexapro) 5 mg PO DAILY [facility] Last Admin: 09/22/16 10:44 Dose: 5 mg Famotidine (Pepcid) 20 mg PO BID [facility] Last Admin: 09/22/16 17:22 Dose: 20 mg Haloperidol (Haldol) 2 mg PO Q2 PRN Heparin Sodium (Porcine) (Heparin) 5,000 units SC Q8 [facility] Last Admin: 09/22/16 21:56 Dose: 5,000 units Sodium Chloride (Sodium Chloride 0.9%) 1,000 mls @ 100 mls/hr IV .Q10H [facility] Last Admin: 09/22/16 15:53 Dose: 100 mls/hr Insulin Aspart (Novolog) 3 unit SC ACTID [facility] Last Admin: 09/22/16 17:22 Dose: 3 unit Insulin Detemir (Levemir) 10 unit SC HS [facility] Last Admin: 09/22/16 21:56 Dose: 10 unit Mirtazapine (Remeron) 7.5 mg PO HS [facility] Last Admin: 09/22/16 21:57 Dose: 7.5 mg Pioglitazone HCl (Actos) 30 mg PO DAILY [facility] Last Admin: 09/22/16 10:44 Dose: 30 mg Rosuvastatin Calcium (Crestor) 10 mg PO HS [facility] Last Admin: 09/22/16 21:56 Dose: 10 mg Tamsulosin HCl (Flomax) 0.4 mg PO HS [facility] Last Admin: 09/22/16 21:56 Dose: 0.4 mg - Labs Labs: 09/22/16 07:58 09/22/16 07:58 - Additional Findings Additional findings: - Constitutional Appears: Non-toxic, No Acute Distress, Unkempt - Head Exam Head Exam: NORMAL INSPECTION - Eye Exam Eye Exam: Normal appearance Pupil Exam: NORMAL ACCOMODATION - Respiratory Exam Respiratory Exam: Clear to Ausculation Bilateral. absent: Rales, Rhonchi, Wheezes - Cardiovascular Exam Cardiovascular Exam: REGULAR RHYTHM, RRR, +S1, +S2. absent: Gallop, Rubs - GI/Abdominal Exam GI & Abdominal Exam: Soft, Normal Bowel Sounds. absent: Tenderness - Extremities Exam Extremities Exam: Normal Inspection. absent: Pedal Edema - Neurological Exam Neurological Exam: Alert. absent: Oriented x3 - Psychiatric Exam Psychiatric exam: Normal Affect, Normal Mood - Skin Skin Exam: Normal Color Assessment and Plan - Assessment and Plan (Free Text) Plan: Dementia 09/22: Patient is still pending placement, monitor for agitation Not agitated, oriented to self only, needs placement f/u Social work Psych evlacey, Dr. Morales consulted, help appreciated - Reccs: Start Lexapro 5mg PO daily; Haldol 2mg PO Q2 PRN Remeron 7.5 mg PO HS Aricept 10mg PO HS Chest X ray negative for active disease - no evidence of infiltrate Blood Cx (09/20): negative x 48 hrs, x 2 Urine CX (09/20): Multiple species, probably contaminated Hx CVAs pts and unaware of this diagnosis but CT head suggests otherwise Head CT - 1. Scattered focal luencies in the subcortical and periventrocular white matter suggestive for severe chronic microvascular ischemia change 2. Multiple focal fer of low attenuation seen within the right torres radiata, basal ganglia, internal capsule, and thalamus suggestive of lucanar infarcts. small infarct in left basal ganglia Seizure and aspiration precautions DM Linagliptin/Metformin HCL 2.5mg/1000mg PO BID - hold while in hospital Actos 30mg PO daily Levemir/Lantus 10 U SC HS Humalog 3 U ACTID Accuchecks ISS HBA1c 8.7 Hypertension Metoprolol Succinate 25mg PO daily Monitor BP Consider adding NEDA inhibitor (pt.diabetic) HLD Crestor 10mg PO HS f/u Lipid panel Hx. CABG Aspirin 81 mg PO daily BPH Flomax 0.4 mg PO HS, Prophylactic Measures Pepcid 20mg PO BID Heparin 5, 000 U SC Q8 PT/OT Social work <Winston Dale - Last Filed: 09/23/16 14:26> Objective - Vital Signs/Intake and Output Vital Signs (last 24 hours): Temp Pulse Resp BP Pulse Ox 98.9 F 92 H 20 158/83 H 95 09/23/16 08:20 09/23/16 08:20 09/23/16 08:20 09/23/16 08:20 09/23/16 08:20 Intake and Output: 09/23/16 09/23/16 06:59 18:59 Intake Total 2150 Balance 2150 - Medications Medications: Current Medications Aspirin (Ecotrin) 81 mg PO DAILY [facility] Last Admin: 09/23/16 10:33 Dose: 81 mg Donepezil HCl (Aricept) 10 mg PO HS [facility] Last Admin: 09/22/16 21:55 Dose: 10 mg Escitalopram Oxalate (Lexapro) 5 mg PO DAILY [facility] Last Admin: 09/23/16 10:33 Dose: 5 mg Famotidine (Pepcid) 20 mg PO BID [facility] Last Admin: 09/23/16 10:33 Dose: 20 mg Haloperidol (Haldol) 2 mg PO Q2 PRN Heparin Sodium (Porcine) (Heparin) 5,000 units SC Q8 [facility] Last Admin: 09/23/16 13:36 Dose: 5,000 units Sodium Chloride (Sodium Chloride 0.9%) 1,000 mls @ 100 mls/hr IV .Q10H [facility] Last Admin: 09/23/16 11:15 Dose: Not Given Insulin Aspart (Novolog) 3 unit SC ACTID [facility] Last Admin: 09/23/16 13:08 Dose: 3 unit Insulin Detemir (Levemir) 10 unit SC HS [facility] Last Admin: 09/22/16 21:56 Dose: 10 unit Mirtazapine (Remeron) 7.5 mg PO HS [facility] Last Admin: 09/22/16 21:57 Dose: 7.5 mg Pioglitazone HCl (Actos) 30 mg PO DAILY [facility] Last Admin: 09/23/16 10:33 Dose: 30 mg Rosuvastatin Calcium (Crestor) 10 mg PO HS [facility] Last Admin: 09/22/16 21:56 Dose: 10 mg Tamsulosin HCl (Flomax) 0.4 mg PO HS [facility] Last Admin: 09/22/16 21:56 Dose: 0.4 mg - Labs Labs: 09/23/16 11:14 09/23/16 11:14 Attending/Attestation - Attestation I have personally seen and examined this patient.: Yes I have fully participated in the care of the patient.: Yes I have reviewed all pertinent clinical information, including history, physical exam and plan: Yes Notes (Text): 09/23/16 14:25 Patient was seen and examined at bedside Patient's family is at bedside Patient is resting comfortably without any acute distress Psych evaluation noted. Patient is not agitated at this time Discharge planning to subacute rehabilitation center I agree with the history and physical and assessment/plan by the resident
[2016-09-23] MEDS: (Novolog) Insulin Aspart, Recombinant 100 u/ml 10 ml vial SC SCH ×3 (09:30→17:23)
[2016-09-23 11:22] LABS: BASO # 0.1 K/uL (0.0-0.2); BASO % 1.3 % (0.0-2.0); EOS # 0.3 K/uL (0.0-0.7); EOS % 4.2 % (0.0-4.0); HEMATOCRIT 37.8 % (35.0-51.0); LYMPH # 1.5 K/uL (1.0-4.3); LYMPH % 21.9 % (20.0-40.0); MEAN CELL VOLUME 87.7 fL (80.0-94.0); MEAN CORPUSCULAR HEMOGLOBIN 28.4 pg (27.0-31.0); MEAN CORPUSCULAR HGB CONC 32.3 g/dL (33.0-37.0); MEAN PLATELET VOLUME 8.5 fL (7.2-11.7); MONO # 0.6 K/uL (0.0-0.8); MONO % 8.1 % (0.0-10.0); NRBC % 0.3 % (0.0-2.0)
[2016-09-23 11:28] LABS: CHLORIDE 110 mmol/L (98-107)
[2016-09-23 11:29] LABS: POTASSIUM 4.4 mmol/L (3.6-5.2); SODIUM 141 mmol/L (132-148)
[2016-09-23 11:31] LABS: ALKALINE PHOSPHATASE 66 U/L (38-126); AST/SGOT 14 U/L (17-59); BILIRUBIN,TOTAL 0.3 mg/dL (0.2-1.3); BLOOD UREA NITROGEN 14 mg/dL (9-20); CARBON DIOXIDE 25 mmol/L (22-30); GFR AFRICAN-AMERICAN > 60
[2016-09-23 11:32] LABS: ALT/SGPT 14 U/L (21-72); CALCIUM 8.4 mg/dl (8.6-10.4); GLUCOSE,RANDOM 213 mg/dL (75-110); MAGNESIUM 1.8 mg/dL (1.6-2.3); PHOSPHOROUS 2.9 mg/dL (2.5-4.5)
[2016-09-23] MEDS: Insulin Detemir 100 units/ml Vial (Levemir) SC SCH (21:51)
[2016-09-24 06:14] LABS: BASO # 0.1 K/uL (0.0-0.2); BASO % 1.6 % (0.0-2.0); EOS # 0.4 K/uL (0.0-0.7); EOS % 4.2 % (0.0-4.0); HEMATOCRIT 37.1 % (35.0-51.0); LYMPH # 2.1 K/uL (1.0-4.3); LYMPH % 22.8 % (20.0-40.0); MEAN CELL VOLUME 87.4 fL (80.0-94.0); MEAN CORPUSCULAR HEMOGLOBIN 28.4 pg (27.0-31.0); MEAN CORPUSCULAR HGB CONC 32.6 g/dL (33.0-37.0); MEAN PLATELET VOLUME 8.7 fL (7.2-11.7); MONO # 0.8 K/uL (0.0-0.8); MONO % 9.3 % (0.0-10.0); RED CELL DISTRIBUTION WIDTH 13.7 % (11.5-14.5); WHITE BLOOD COUNT 9.1 K/uL (4.8-10.8)
[2016-09-24 06:33] LABS: CHLORIDE 108 mmol/L (98-107); POTASSIUM 3.9 mmol/L (3.6-5.2); SODIUM 140 mmol/L (132-148)
[2016-09-24 06:35] LABS: GFR AFRICAN-AMERICAN > 60
[2016-09-24 06:36] LABS: ALB/GLOB RATIO 0.9 (1.0-2.1); ALKALINE PHOSPHATASE 68 U/L (38-126); ALT/SGPT 14 U/L (21-72); AST/SGOT 25 U/L (17-59); BILIRUBIN,TOTAL 0.4 mg/dL (0.2-1.3); BLOOD UREA NITROGEN 12 mg/dL (9-20); CALCIUM 8.2 mg/dl (8.6-10.4); CARBON DIOXIDE 26 mmol/L (22-30); GLUCOSE,RANDOM 116 mg/dL (75-110)
[2016-09-24] MEDS: (Novolog) Insulin Aspart, Recombinant 100 u/ml 10 ml vial SC SCH ×3 (08:36→17:05)
[2016-09-24] MEDS: Sodium Chloride 0.9% 1,000 ML IV SCH ×3 (08:38→21:49)
--- NOTE | 2016-09-24 11:19 | CP.PCM.PN ---
<Lisseth Abarca - Last Filed: 09/24/16 14:30> Subjective - Date & Time of Evaluation Date of Evaluation: 09/24/16 Time of Evaluation: 08:00 - Subjective Subjective: Patient seen and examined at bedside. Nursing reports no acute events overnight. Pt oriented to self only. Accurate ROS unobtainable due to pts condition. Patient wanted to be left alone so that he could sleep. Per case management we are still waiting for [facility] placement. Objective - Vital Signs/Intake and Output Vital Signs (last 24 hours): Temp Pulse Resp BP Pulse Ox 98.0 F 79 20 130/72 96 09/24/16 07:48 09/24/16 07:48 09/24/16 07:48 09/24/16 10:45 09/24/16 07:48 Intake and Output: 09/24/16 09/24/16 06:59 18:59 Intake Total 2150 Output Total 1 Balance 2149 - Medications Medications: Current Medications Aspirin (Ecotrin) 81 mg PO DAILY [facility] Last Admin: 09/24/16 10:54 Dose: 81 mg Donepezil HCl (Aricept) 10 mg PO [facility] Last Admin: 09/23/16 21:50 Dose: 10 mg Escitalopram Oxalate (Lexapro) 5 mg PO DAILY [facility] Last Admin: 09/24/16 10:54 Dose: 5 mg Famotidine (Pepcid) 20 mg PO BID [facility] Last Admin: 09/24/16 10:46 Dose: 20 mg Haloperidol (Haldol) 2 mg PO Q2 PRN Heparin Sodium (Porcine) (Heparin) 5,000 units SC Q8 [facility] Last Admin: 09/24/16 10:46 Dose: 5,000 units Insulin Aspart (Novolog) 3 unit SC ACTID [facility] Last Admin: 09/24/16 08:36 Dose: 3 unit Insulin Detemir (Levemir) 10 unit SC HS [facility] Last Admin: 09/23/16 21:51 Dose: 10 unit Mirtazapine (Remeron) 7.5 mg PO HS [facility] Last Admin: 09/23/16 21:52 Dose: 7.5 mg Pioglitazone HCl (Actos) 30 mg PO DAILY [facility] Last Admin: 09/23/16 10:33 Dose: 30 mg Rosuvastatin Calcium (Crestor) 10 mg PO [facility] Last Admin: 09/23/16 21:50 Dose: 10 mg Tamsulosin HCl (Flomax) 0.4 mg PO HS [facility] Last Admin: 09/23/16 21:51 Dose: 0.4 mg - Labs Labs: 09/24/16 06:03 09/24/16 06:03 - Constitutional Appears: Non-toxic, No Acute Distress, Older Than Stated Age, Chronically Ill - Head Exam Head Exam: ATRAUMATIC - Eye Exam Eye Exam: EOMI - ENT Exam ENT Exam: Mucous Membranes Moist - Respiratory Exam Respiratory Exam: Clear to Ausculation Bilateral, NORMAL BREATHING PATTERN. absent: Accessory Muscle Use, Decreased Breath Sounds, Wheezes, Respiratory Distress - Cardiovascular Exam Cardiovascular Exam: REGULAR RHYTHM, +S1, +S2 - GI/Abdominal Exam GI & Abdominal Exam: Soft, Normal Bowel Sounds. absent: Distended, Firm, Guarding, Tenderness - Extremities Exam Extremities Exam: Normal Inspection. absent: Calf Tenderness, Pedal Edema - Back Exam Back Exam: NORMAL INSPECTION. absent: CVA tenderness (L), CVA tenderness (R), paraspinal tenderness - Neurological Exam Neurological Exam: Alert, Awake. absent: Normal Gait, Oriented x3 - Psychiatric Exam Psychiatric exam: Normal Affect, Normal Mood - Skin Skin Exam: Dry, Intact, Normal Color, Warm Assessment and Plan - Assessment and Plan (Free Text) Assessment: Dementia 09/22: Patient is still pending placement, monitor for agitation Not agitated, oriented to self only, needs placement f/u Social work Psych Dr. Andrew be consulted, help appreciated - Reccs: Start Lexapro 5mg PO daily; Haldol 2mg PO Q2 PRN Remeron 7.5 mg PO HS Aricept 10mg PO HS Chest X ray negative for active disease - no evidence of infiltrate Blood Cx (09/20): negative x 48 hrs, x 2 Urine CX (09/20): Multiple species, probably contaminated Depression Psych Dr. Andrew be consulted, help appreciated - Reccs: Start Lexapro 5mg PO daily; Haldol 2mg PO Q2 PRN Hx CVAs pts and unaware of this diagnosis but CT head suggests otherwise Head CT - 1. Scattered focal luencies in the subcortical and periventrocular white matter suggestive for severe chronic microvascular ischemia change 2. Multiple focal fer of low attenuation seen within the right torres radiata, basal ganglia, internal capsule, and thalamus suggestive of lucanar infarcts. small infarct in left basal ganglia Seizure and aspiration precautions DM Linagliptin/Metformin HCL 2.5mg/1000mg PO BID - hold while in hospital Actos 30mg PO daily Levemir/Lantus 10 U SC HS Humalog 5 U ACTID - increased today from 3 U Accuchecks ISS HBA1c 8.7 Hypertension Metoprolol Succinate 25mg PO daily Monitor BP Consider adding NEDA inhibitor (pt.diabetic) HLD Crestor 10mg PO HS Hx. CABG Aspirin 81 mg PO daily BPH Flomax 0.4 mg PO HS, Prophylactic Measures Pepcid 20mg PO BID Heparin 5, 000 U SC Q8 PT/OT Social work <oJseyAdilson H - Last Filed: 09/24/16 15:32> Objective - Vital Signs/Intake and Output Vital Signs (last 24 hours): Temp Pulse Resp BP Pulse Ox 98.0 F 79 20 130/72 96 09/24/16 07:48 09/24/16 07:48 09/24/16 07:48 09/24/16 10:45 09/24/16 07:48 Intake and Output: 09/24/16 09/24/16 06:59 18:59 Intake Total 2150 Output Total 1 Balance 2149 - Medications Medications: Current Medications Aspirin (Ecotrin) 81 mg PO DAILY [facility] Last Admin: 09/24/16 10:54 Dose: 81 mg Donepezil HCl (Aricept) 10 mg PO HS [facility] Last Admin: 09/23/16 21:50 Dose: 10 mg Escitalopram Oxalate (Lexapro) 5 mg PO DAILY [facility] Last Admin: 09/24/16 10:54 Dose: 5 mg Famotidine (Pepcid) 20 mg PO BID [facility] Last Admin: 09/24/16 10:46 Dose: 20 mg Haloperidol (Haldol) 2 mg PO Q2 PRN Heparin Sodium (Porcine) (Heparin) 5,000 units SC Q8 [facility] Last Admin: 09/24/16 10:46 Dose: 5,000 units Insulin Aspart (Novolog) 5 unit SC ACTID [facility] Insulin Detemir (Levemir) 10 unit SC HS [facility] Last Admin: 09/23/16 21:51 Dose: 10 unit Mirtazapine (Remeron) 7.5 mg PO HS [facility] Last Admin: 09/23/16 21:52 Dose: 7.5 mg Pioglitazone HCl (Actos) 30 mg PO DAILY [facility] Last Admin: 09/24/16 10:10 Dose: 30 mg Rosuvastatin Calcium (Crestor) 10 mg PO HS [facility] Last Admin: 09/23/16 21:50 Dose: 10 mg Tamsulosin HCl (Flomax) 0.4 mg PO [facility] Last Admin: 09/23/16 21:51 Dose: 0.4 mg - Labs Labs: 09/24/16 06:03 09/24/16 06:03 Attending/Attestation - Attestation I have personally seen and examined this patient.: Yes I have fully participated in the care of the patient.: Yes I have reviewed all pertinent clinical information, including history, physical exam and plan: Yes Notes (Text): 09/24/16 15:29 Medical Attending: Patient was seen and examined by me. Agree with the above note by the resident. This is my first time meeting the patient - and I had to review previous notes and discuss with the residents. Currently waiting to see what the option are with reguards to placement. Reportedly the patient and family were at [facility] but had to leave. There is a history of dementia and some agitation. He is not always cooperative during exam. Adilson Dowling
--- NOTE | 2016-09-24 13:01 | PCM.PYCHPN ---
Psychiatric Progress Note - Psychiatric Progress Note Patient seen today, length of contact: 16 min Patient Chief Complaint: "I'm okay." Problems Identified/Issues Discussed: Patient seen, chart reviewed, case discussed with nurse. [employer] Intern service used to converse with patient. The patient is compliant with medications and reports no side effects. He is still incoherent and difficult to understand, however, he has shown improvement. Patient needs more time to stabilize. He denies depression, paranoia, suicidal ideation, however, he is evasive and guarded. has very poor insight. After care discussed, support and psychoeducation given. Medication Change: No Medical Record Reviewed: Yes Mental Status Examination - Cognitive Function Orientation: Person Memory: Impaired Attention: Poor Concentration: Poor Association: Loose Fund of Knowledge: Poor - Mood Mood: Depressed, Anxious - Affect Affect: Blunted - Speech Speech: Slurred, Soft - Formal Thought Process Formal Thought Process: Loosening of associations - Suicidal Ideation Suicidal Ideation: No - Homicidal Ideation Homicidal Ideation: No Goal/Treatment Plan - Goal/Treatment Plan Need for Continued Stay: Remain at risks for inpatient hospitalization, Discharge may exacerbated symptoms Progress Toward Problem(s) and Goals/Treatment Plan: Depression - Lexapro 5 mg PO daily - Continue remeron 7.5 mg PO HS [facility] - Support and psychoeducation Dementia: - Continue Aricept 10 mg PO HS [facility] - lexapro should help - Close observation - Frequent support and orientation - should apply for guardianship - check vitamin levels, tsh, rpr...
[2016-09-24] MEDS: Insulin Detemir 100 units/ml Vial (Levemir) SC SCH (21:48)
[2016-09-25 06:29] LABS: BASO # 0.1 K/uL (0.0-0.2); BASO % 1.3 % (0.0-2.0); EOS # 0.3 K/uL (0.0-0.7); EOS % 4.5 % (0.0-4.0); LYMPH # 1.8 K/uL (1.0-4.3); LYMPH % 23.8 % (20.0-40.0); MEAN CELL VOLUME 87.3 fL (80.0-94.0); MEAN CORPUSCULAR HEMOGLOBIN 28.5 pg (27.0-31.0); MEAN CORPUSCULAR HGB CONC 32.7 g/dL (33.0-37.0); MEAN PLATELET VOLUME 8.3 fL (7.2-11.7); MONO # 0.7 K/uL (0.0-0.8); MONO % 9.5 % (0.0-10.0); RED CELL DISTRIBUTION WIDTH 13.7 % (11.5-14.5); WHITE BLOOD COUNT 7.5 K/uL (4.8-10.8)
[2016-09-25 06:53] LABS: CHLORIDE 108 mmol/L (98-107); POTASSIUM 3.8 mmol/L (3.6-5.2); SODIUM 141 mmol/L (132-148)
[2016-09-25 06:55] LABS: AST/SGOT 21 U/L (17-59); BILIRUBIN,TOTAL 0.4 mg/dL (0.2-1.3); CARBON DIOXIDE 25 mmol/L (22-30); GFR AFRICAN-AMERICAN > 60
[2016-09-25 06:56] LABS: ALKALINE PHOSPHATASE 66 U/L (38-126); ALT/SGPT 16 U/L (21-72); BLOOD UREA NITROGEN 9 mg/dL (9-20); CALCIUM 8.2 mg/dl (8.6-10.4); GLUCOSE,RANDOM 93 mg/dL (75-110); TOTAL PROTEIN 5.8 g/dL (6.3-8.3)
--- NOTE | 2016-09-25 07:07 | CP.PCM.PN ---
<Lisseth Abarca - Last Filed: 09/25/16 10:08> Subjective - Date & Time of Evaluation Date of Evaluation: 09/25/16 Time of Evaluation: 07:25 - Subjective Subjective: Patient seen and examined at bedside. Nursing reports no acute events overnight. Pt oriented to self only. Accurate ROS unobtainable due to pts condition. Patient denied chest pain, shortness of breath or any other pain. Per case management we are still waiting for [facility] placement. Objective - Vital Signs/Intake and Output Vital Signs (last 24 hours): Temp Pulse Resp BP Pulse Ox 97.8 F 84 20 143/83 96 09/24/16 23:57 09/24/16 23:57 09/24/16 23:57 09/24/16 23:57 09/24/16 23:57 Intake and Output: 09/25/16 09/25/16 06:59 18:59 Intake Total 1970 Balance 1970 - Medications Medications: Current Medications Aspirin (Ecotrin) 81 mg PO DAILY [facility] Last Admin: 09/24/16 10:54 Dose: 81 mg Donepezil HCl (Aricept) 10 mg PO HS [facility] Last Admin: 09/24/16 21:48 Dose: 10 mg Escitalopram Oxalate (Lexapro) 5 mg PO DAILY [facility] Last Admin: 09/24/16 10:54 Dose: 5 mg Famotidine (Pepcid) 20 mg PO BID [facility] Last Admin: 09/24/16 17:05 Dose: 20 mg Haloperidol (Haldol) 2 mg PO Q2 PRN Heparin Sodium (Porcine) (Heparin) 5,000 units SC Q8 [facility] Last Admin: 09/25/16 05:32 Dose: 5,000 units Insulin Aspart (Novolog) 5 unit SC ACTID [facility] Last Admin: 09/24/16 17:05 Dose: 5 unit Insulin Detemir (Levemir) 10 unit SC HS [facility] Last Admin: 09/24/16 21:48 Dose: 10 unit Mirtazapine (Remeron) 7.5 mg PO HS [facility] Last Admin: 09/24/16 21:49 Dose: 7.5 mg Pioglitazone HCl (Actos) 30 mg PO DAILY [facility] Last Admin: 09/24/16 10:10 Dose: 30 mg Rosuvastatin Calcium (Crestor) 10 mg PO HS [facility] Last Admin: 09/24/16 21:48 Dose: 10 mg Tamsulosin HCl (Flomax) 0.4 mg PO HS [facility] Last Admin: 09/24/16 21:48 Dose: 0.4 mg - Labs Labs: 09/25/16 06:18 09/25/16 06:18 - Constitutional Appears: Non-toxic, No Acute Distress, Older Than Stated Age, Chronically Ill - Head Exam Head Exam: ATRAUMATIC, NORMAL INSPECTION - Eye Exam Eye Exam: EOMI Pupil Exam: NORMAL ACCOMODATION - ENT Exam ENT Exam: Mucous Membranes Dry - Respiratory Exam Respiratory Exam: Clear to Ausculation Bilateral, NORMAL BREATHING PATTERN. absent: Rales, Rhonchi, Wheezes, Respiratory Distress - Cardiovascular Exam Cardiovascular Exam: REGULAR RHYTHM, +S1, +S2 - GI/Abdominal Exam GI & Abdominal Exam: Soft, Normal Bowel Sounds. absent: Distended, Firm, Guarding, Tenderness - Extremities Exam Extremities Exam: Normal Inspection. absent: Calf Tenderness, Pedal Edema - Back Exam Back Exam: NORMAL INSPECTION. absent: CVA tenderness (L), CVA tenderness (R), paraspinal tenderness - Neurological Exam Neurological Exam: Awake, CN II-XII Intact. absent: Alert, Normal Gait, Oriented x3 Neuro motor strength exam: Left Upper Extremity: 4, Right Upper Extremity: 4, Left Lower Extremity: 4, Right Lower Extremity: 4 - Psychiatric Exam Psychiatric exam: Normal Affect, Normal Mood - Skin Skin Exam: Dry, Intact, Normal Color, Warm Assessment and Plan - Assessment and Plan (Free Text) Assessment: Dementia Patient is still pending placement, monitor for agitation Not agitated, oriented to self only, needs placement f/u Social work Psych Dr. Andrew be consulted, help appreciated - Reccs: Start Lexapro 5mg PO daily; Haldol 2mg PO Q2 PRN Remeron 7.5 mg PO HS Aricept 10mg PO HS Chest X ray negative for active disease - no evidence of infiltrate Blood Cx (09/20): negative Urine CX (09/20): Multiple species, probably contaminated Depression Psych Dr. Andrew be consulted, help appreciated - Reccs: Start Lexapro 5mg PO daily; Haldol 2mg PO Q2 PRN Hx CVAs pts and unaware of this diagnosis but CT head suggests otherwise Head CT - 1. Scattered focal luencies in the subcortical and periventrocular white matter suggestive for severe chronic microvascular ischemia change 2. Multiple focal fer of low attenuation seen within the right torres radiata, basal ganglia, internal capsule, and thalamus suggestive of lucanar infarcts. small infarct in left basal ganglia Seizure and aspiration precautions DM Linagliptin/Metformin HCL 2.5mg/1000mg PO BID - hold while in hospital Actos 30mg PO daily Levemir/Lantus 10 U SC HS Humalog 5 U ACTID Accuchecks ISS HBA1c 8.7 Hypertension Metoprolol Succinate 25mg PO daily Start Lisionpril 5mg PO daily Monitor BP HLD Crestor 10mg PO HS Hx. CABG Aspirin 81 mg PO daily BPH Flomax 0.4 mg PO HS, Prophylactic Measures Pepcid 20mg PO BID Heparin 5, 000 U SC Q8 PT/OT Social work <Adilson Dowling - Last Filed: 09/25/16 15:14> Objective - Vital Signs/Intake and Output Vital Signs (last 24 hours): Temp Pulse Resp BP Pulse Ox 97.4 F L 75 20 138/85 96 09/25/16 08:00 09/25/16 10:32 09/25/16 08:00 09/25/16 10:32 09/25/16 10:32 Intake and Output: 09/25/16 09/25/16 06:59 18:59 Intake Total 1970 Balance 1970 - Medications Medications: Current Medications Aspirin (Ecotrin) 81 mg PO DAILY [facility] Last Admin: 09/25/16 10:35 Dose: 81 mg Donepezil HCl (Aricept) 10 mg PO HS [facility] Last Admin: 09/24/16 21:48 Dose: 10 mg Escitalopram Oxalate (Lexapro) 5 mg PO DAILY [facility] Last Admin: 09/25/16 10:34 Dose: 5 mg Famotidine (Pepcid) 20 mg PO BID [facility] Last Admin: 09/25/16 10:38 Dose: 20 mg Haloperidol (Haldol) 2 mg PO Q2 PRN Heparin Sodium (Porcine) (Heparin) 5,000 units SC Q8 [facility] Last Admin: 09/25/16 10:35 Dose: 5,000 units Insulin Aspart (Novolog) 5 unit SC ACTID [facility] Insulin Detemir (Levemir) 10 unit SC HS [facility] Last Admin: 09/24/16 21:48 Dose: 10 unit Lisinopril (Zestril) 5 mg PO DAILY [facility] Mirtazapine (Remeron) 7.5 mg PO [facility] Last Admin: 09/24/16 21:49 Dose: 7.5 mg Pioglitazone HCl (Actos) 30 mg PO DAILY [facility] Last Admin: 09/25/16 10:34 Dose: 30 mg Rosuvastatin Calcium (Crestor) 10 mg PO [facility] Last Admin: 09/24/16 21:48 Dose: 10 mg Tamsulosin HCl (Flomax) 0.4 mg PO [facility] Last Admin: 09/24/16 21:48 Dose: 0.4 mg - Labs Labs: 09/25/16 06:18 09/25/16 06:18 Attending/Attestation - Attestation I have personally seen and examined this patient.: Yes I have fully participated in the care of the patient.: Yes I have reviewed all pertinent clinical information, including history, physical exam and plan: Yes Notes (Text): 09/25/16 15:11 Medical Attending: Patient was seen and examined by me as well/. Th
[2016-09-25] MEDS: (Novolog) Insulin Aspart, Recombinant 100 u/ml 10 ml vial SC SCH ×3 (08:39→18:05)
[2016-09-25] MEDS ORDERED: (Novolog) Insulin Aspart, Recombinant 100 u/ml 10 ml vial SC SCH (12:09)
[2016-09-25] MEDS: Insulin Detemir 100 units/ml Vial (Levemir) SC SCH (21:59)
[2016-09-25] MEDS: Sodium Chloride 0.9% 1,000 ML IV SCH (23:00)
--- NOTE | 2016-09-26 07:23 | CP.PCM.PN ---
<Lisseth Abarca - Last Filed: 09/26/16 12:00> Subjective - Date & Time of Evaluation Date of Evaluation: 09/26/16 Time of Evaluation: 07:15 - Subjective Subjective: Patient seen and examined at bedside. Nursing reports no acute events overnight. Pt oriented to self only. Accurate ROS unobtainable due to pts condition. Patient denied chest pain, shortness of breath or any other pain. Per case management we are still waiting for [facility] placement. Objective - Vital Signs/Intake and Output Vital Signs (last 24 hours): Temp Pulse Resp BP Pulse Ox 98.1 F 76 20 145/78 96 09/25/16 23:53 09/25/16 23:53 09/25/16 23:53 09/25/16 23:53 09/25/16 23:53 Intake and Output: 09/26/16 09/26/16 06:59 18:59 Intake Total 1000 Output Total 300 Balance 700 - Medications Medications: Current Medications Aspirin (Ecotrin) 81 mg PO DAILY [facility] Last Admin: 09/25/16 10:35 Dose: 81 mg Donepezil HCl (Aricept) 10 mg PO HS [facility] Last Admin: 09/25/16 21:59 Dose: 10 mg Escitalopram Oxalate (Lexapro) 5 mg PO DAILY [facility] Last Admin: 09/25/16 10:34 Dose: 5 mg Famotidine (Pepcid) 20 mg PO BID [facility] Last Admin: 09/25/16 18:00 Dose: 20 mg Haloperidol (Haldol) 2 mg PO Q2 PRN Heparin Sodium (Porcine) (Heparin) 5,000 units SC Q8 [facility] Last Admin: 09/25/16 21:59 Dose: 5,000 units Insulin Aspart (Novolog) 5 unit SC ACTID [facility] Last Admin: 09/25/16 18:05 Dose: Not Given Insulin Detemir (Levemir) 10 unit SC HS [facility] Last Admin: 09/25/16 21:59 Dose: 10 unit Lisinopril (Zestril) 5 mg PO DAILY [facility] Mirtazapine (Remeron) 7.5 mg PO HS [facility] Last Admin: 09/25/16 21:59 Dose: 7.5 mg Pioglitazone HCl (Actos) 30 mg PO DAILY [facility] Last Admin: 09/25/16 10:34 Dose: 30 mg Rosuvastatin Calcium (Crestor) 10 mg PO HS [facility] Last Admin: 09/25/16 21:59 Dose: 10 mg Tamsulosin HCl (Flomax) 0.4 mg PO HS [facility] Last Admin: 09/25/16 21:59 Dose: 0.4 mg - Labs Labs: 09/25/16 06:18 09/25/16 06:18 - Constitutional Appears: Non-toxic, No Acute Distress, Older Than Stated Age, Chronically Ill - Head Exam Head Exam: ATRAUMATIC, NORMAL INSPECTION - Eye Exam Eye Exam: EOMI, Normal appearance, PERRL - ENT Exam ENT Exam: Mucous Membranes Moist - Respiratory Exam Respiratory Exam: Clear to Ausculation Bilateral, NORMAL BREATHING PATTERN. absent: Rales, Wheezes, Respiratory Distress - Cardiovascular Exam Cardiovascular Exam: REGULAR RHYTHM. absent: +S1, +S2 - GI/Abdominal Exam GI & Abdominal Exam: Soft, Normal Bowel Sounds. absent: Distended, Firm, Guarding, Tenderness - Back Exam Back Exam: NORMAL INSPECTION. absent: CVA tenderness (L), CVA tenderness (R), paraspinal tenderness - Neurological Exam Neurological Exam: Alert, Awake. absent: Normal Gait, Oriented x3 Neuro motor strength exam: Left Upper Extremity: 5, Right Upper Extremity: 5, Left Lower Extremity: 5, Right Lower Extremity: 5 - Psychiatric Exam Psychiatric exam: Normal Affect, Normal Mood - Skin Skin Exam: Dry, Intact, Normal Color, Warm Assessment and Plan - Assessment and Plan (Free Text) Assessment: Dementia Patient is still pending placement, monitor for agitation Not agitated, oriented to self only, needs placement f/u Social work Psych Dr. Andrew be consulted, help appreciated - Reccs: Start Lexapro 5mg PO daily; Haldol 2mg PO Q2 PRN Remeron 7.5 mg PO HS Aricept 10mg PO HS Chest X ray negative for active disease - no evidence of infiltrate Blood Cx (09/20): negative Urine CX (09/20): Multiple species, probably contaminated Depression Psych Dr. Andrew be consulted, help appreciated - Reccs: Start Lexapro 5mg PO daily; Haldol 2mg PO Q2 PRN Hx CVAs pts and unaware of this diagnosis but CT head suggests otherwise Head CT - 1. Scattered focal luencies in the subcortical and periventrocular white matter suggestive for severe chronic microvascular ischemia change 2. Multiple focal fer of low attenuation seen within the right torres radiata, basal ganglia, internal capsule, and thalamus suggestive of lucanar infarcts. small infarct in left basal ganglia Seizure and aspiration precautions DM Linagliptin/Metformin HCL 2.5mg/1000mg PO BID - hold while in hospital Actos 30mg PO daily Levemir/Lantus 10 U SC HS Humalog 5 U ACTID Accuchecks ISS HBA1c 8.7 Hypertension Metoprolol Succinate 25mg PO daily Start Lisionpril 5mg PO daily Monitor BP HLD Crestor 10mg PO HS Hx. CABG Aspirin 81 mg PO daily BPH Flomax 0.4 mg PO HS, Prophylactic Measures Pepcid 20mg PO BID Heparin 5, 000 U SC Q8 PT/OT Social work <Adilson Dowling - Last Filed: 09/26/16 14:53> Objective - Vital Signs/Intake and Output Vital Signs (last 24 hours): Temp Pulse Resp BP Pulse Ox 97.8 F 81 20 132/77 96 09/26/16 07:44 09/26/16 07:44 09/26/16 07:44 09/26/16 07:44 09/26/16 07:44 Intake and Output: 09/26/16 09/26/16 06:59 18:59 Intake Total 1000 Output Total 300 Balance 700 - Medications Medications: Current Medications Aspirin (Ecotrin) 81 mg PO DAILY [facility] Last Admin: 09/26/16 09:17 Dose: 81 mg Donepezil HCl (Aricept) 10 mg PO HS [facility] Last Admin: 09/25/16 21:59 Dose: 10 mg Escitalopram Oxalate (Lexapro) 5 mg PO DAILY [facility] Last Admin: 09/26/16 09:18 Dose: 5 mg Famotidine (Pepcid) 20 mg PO BID [facility] Last Admin: 09/26/16 09:17 Dose: 20 mg Haloperidol (Haldol) 2 mg PO Q2 PRN Heparin Sodium (Porcine) (Heparin) 5,000 units SC Q8 [facility] Last Admin: 09/26/16 12:59 Dose: 5,000 units Insulin Aspart (Novolog) 5 unit SC ACTID [facility] Last Admin: 09/26/16 12:48 Dose: Not Given Insulin Detemir (Levemir) 10 unit SC HS [facility] Last Admin: 09/25/16 21:59 Dose: 10 unit Lisinopril (Zestril) 5 mg PO DAILY [facility] Last Admin: 09/26/16 09:17 Dose: 5 mg Mirtazapine (Remeron) 7.5 mg PO [facility] Last Admin: 09/25/16 21:59 Dose: 7.5 mg Pioglitazone HCl (Actos) 30 mg PO DAILY [facility] Last Admin: 09/26/16 10:53 Dose: 30 mg Rosuvastatin Calcium (Crestor) 10 mg PO HS [facility] Last Admin: 09/25/16 21:59 Dose: 10 mg Tamsulosin HCl (Flomax) 0.4 mg PO HS [facility] Last Admin: 09/25/16 21:59 Dose: 0.4 mg - Labs Labs: 09/26/16 07:41 09/26/16 07:41 Attending/Attestation - Attestation I have personally seen and examined this patient.: Yes I have fully participated in the care of the patient.: Yes I have reviewed all pertinent clinical information, including history, physical exam and plan: Yes Notes (Text): Medical attending: Patient was seen and examined by me, agree with the above note by site medical director. At this time were still waiting on placement for the patient. Per my discussion with the caseworkers still searching for place at this time they've been in communication with the patient's as well. I'm told that earlier in the morning he was more awake and alert and that he is eating quite well. However when I saw him he appeared to be almost ignoring me. He did not want to interact with me during physical exam. He does not appear to be in any acute distress however I don't believe that he'll be able to walk again at least I have not been told that he's been walking or observed walking while he's been here. Thank you very much, as mentioned before at this time were waiting on placement Adilson Dowling
[2016-09-26 07:59] LABS: BASO # 0.1 K/uL (0.0-0.2); BASO % 1.3 % (0.0-2.0); EOS # 0.4 K/uL (0.0-0.7); EOS % 4.5 % (0.0-4.0); HEMATOCRIT 36.7 % (35.0-51.0); LYMPH # 1.8 K/uL (1.0-4.3); MEAN CELL VOLUME 87.5 fL (80.0-94.0); MEAN CORPUSCULAR HEMOGLOBIN 28.4 pg (27.0-31.0); MEAN CORPUSCULAR HGB CONC 32.5 g/dL (33.0-37.0); MEAN PLATELET VOLUME 8.2 fL (7.2-11.7); MONO # 0.8 K/uL (0.0-0.8); MONO % 9.8 % (0.0-10.0); RED CELL DISTRIBUTION WIDTH 13.6 % (11.5-14.5); WHITE BLOOD COUNT 8.2 K/uL (4.8-10.8)
[2016-09-26] MEDS: (Novolog) Insulin Aspart, Recombinant 100 u/ml 10 ml vial SC SCH ×4 (07:59→17:42)
[2016-09-26 08:09] LABS: CHLORIDE 112 mmol/L (98-107)
[2016-09-26 08:10] LABS: POTASSIUM 3.8 mmol/L (3.6-5.2); SODIUM 142 mmol/L (132-148)
[2016-09-26 08:11] LABS: GFR AFRICAN-AMERICAN > 60
[2016-09-26 08:12] LABS: ALKALINE PHOSPHATASE 62 U/L (38-126); AST/SGOT 22 U/L (17-59); BILIRUBIN,TOTAL 0.5 mg/dL (0.2-1.3); BLOOD UREA NITROGEN 9 mg/dL (9-20); CARBON DIOXIDE 25 mmol/L (22-30)
[2016-09-26 08:13] LABS: ALT/SGPT 19 U/L (21-72); CALCIUM 8.6 mg/dl (8.6-10.4); GLUCOSE,RANDOM 90 mg/dL (75-110); MAGNESIUM 1.7 mg/dL (1.6-2.3)
[2016-09-26] MEDS: Sodium Chloride 0.9% 1,000 ML IV SCH (09:20)
--- NOTE | 2016-09-26 10:20 | RAD ---
Chest x-ray single frontal view History: Cough. Comparison: None available. Findings: Patchy increased markings at both lung bases with associated bilateral pleural effusions. More linear consolidative changes at the right midlung zone and right lung base. Venous congestion. Status post median sternotomy. Sternal wires project over the right hilar region, possibly displaced. Clinical correlation. Degenerative changes in the spine and shoulders. Impression: Patchy increased markings at both lung bases with associated bilateral pleural effusions. More linear consolidative changes at the right midlung zone and right lung base. Venous congestion. Status post median sternotomy. Sternal wires project over the right hilar region, possibly displaced. Clinical correlation.
[2016-09-26] MEDS: Insulin Detemir 100 units/ml Vial (Levemir) SC SCH (21:33)
--- NOTE | 2016-09-27 07:18 | CP.PCM.PN ---
<Lisseth Abarca - Last Filed: 09/27/16 13:07> Subjective - Date & Time of Evaluation Date of Evaluation: 09/27/16 Time of Evaluation: 07:35 - Subjective Subjective: Patient seen and examined at bedside. Nursing reports no acute events overnight. Pt oriented to self only. Accurate ROS unobtainable due to pts condition. Patient denied chest pain, shortness of breath or any other pain. Per case management we are still waiting for [facility] placement. Objective - Vital Signs/Intake and Output Vital Signs (last 24 hours): Temp Pulse Resp BP Pulse Ox 99.2 F 78 20 132/77 95 09/27/16 01:01 09/27/16 01:01 09/27/16 01:01 09/27/16 01:01 09/27/16 01:01 Intake and Output: 09/27/16 09/27/16 06:59 18:59 Intake Total 0 Output Total 150 Balance -150 - Medications Medications: Current Medications Aspirin (Ecotrin) 81 mg PO DAILY [facility] Last Admin: 09/26/16 09:17 Dose: 81 mg Donepezil HCl (Aricept) 10 mg PO HS [facility] Last Admin: 09/26/16 21:32 Dose: 10 mg Escitalopram Oxalate (Lexapro) 5 mg PO DAILY [facility] Last Admin: 09/26/16 09:18 Dose: 5 mg Famotidine (Pepcid) 20 mg PO BID [facility] Last Admin: 09/26/16 17:42 Dose: 20 mg Haloperidol (Haldol) 2 mg PO Q2 PRN Heparin Sodium (Porcine) (Heparin) 5,000 units SC Q8 [facility] Last Admin: 09/27/16 05:32 Dose: 5,000 units Insulin Aspart (Novolog) 5 unit SC ACTID [facility] Last Admin: 09/26/16 17:42 Dose: 5 unit Insulin Detemir (Levemir) 10 unit SC HS [facility] Last Admin: 09/26/16 21:33 Dose: 10 unit Lisinopril (Zestril) 5 mg PO DAILY [facility] Last Admin: 09/26/16 09:17 Dose: 5 mg Mirtazapine (Remeron) 7.5 mg PO HS [facility] Last Admin: 09/26/16 21:32 Dose: 7.5 mg Pioglitazone HCl (Actos) 30 mg PO DAILY [facility] Last Admin: 09/26/16 10:53 Dose: 30 mg Rosuvastatin Calcium (Crestor) 10 mg PO HS [facility] Last Admin: 09/26/16 21:32 Dose: 10 mg Tamsulosin HCl (Flomax) 0.4 mg PO HS [facility] Last Admin: 09/26/16 21:32 Dose: 0.4 mg - Labs Labs: 09/26/16 07:41 09/26/16 07:41 - Constitutional Appears: Non-toxic, No Acute Distress, Unkempt, Older Than Stated Age, Chronically Ill - Head Exam Head Exam: ATRAUMATIC, NORMAL INSPECTION - Eye Exam Eye Exam: EOMI, Normal appearance, PERRL Pupil Exam: NORMAL ACCOMODATION - ENT Exam ENT Exam: Mucous Membranes Moist - Respiratory Exam Respiratory Exam: Clear to Ausculation Bilateral, NORMAL BREATHING PATTERN. absent: Accessory Muscle Use, Rales, Rhonchi, Wheezes, Respiratory Distress - Cardiovascular Exam Cardiovascular Exam: REGULAR RHYTHM, +S1, +S2 - GI/Abdominal Exam GI & Abdominal Exam: Soft, Normal Bowel Sounds. absent: Distended, Guarding, Tenderness - Extremities Exam Extremities Exam: Normal Inspection. absent: Calf Tenderness, Pedal Edema - Back Exam Back Exam: NORMAL INSPECTION. absent: CVA tenderness (L), CVA tenderness (R), paraspinal tenderness - Neurological Exam Neurological Exam: Alert, Awake. absent: Normal Gait, Oriented x3 - Psychiatric Exam Psychiatric exam: Depressed, Flat Affect, Normal Affect, Normal Mood - Skin Skin Exam: Dry, Intact, Normal Color, Warm Assessment and Plan - Assessment and Plan (Free Text) Assessment: Dementia Patient is still pending placement, monitor for agitation Not agitated, oriented to self only, needs placement f/u Social work Psych Dr. Andrew be consulted, help appreciated - Reccs: Start Lexapro 5mg PO daily; Haldol 2mg PO Q2 PRN Remeron 7.5 mg PO HS Aricept 10mg PO HS Chest X ray negative for active disease - no evidence of infiltrate Blood Cx (09/20): negative Urine CX (09/20): Multiple species, probably contaminated Depression Psych Dr. Andrew be consulted, help appreciated - Reccs: Start Lexapro 5mg PO daily; Haldol 2mg PO Q2 PRN Hx CVAs pts and unaware of this diagnosis but CT head suggests otherwise Head CT - 1. Scattered focal luencies in the subcortical and periventrocular white matter suggestive for severe chronic microvascular ischemia change 2. Multiple focal fer of low attenuation seen within the right torres radiata, basal ganglia, internal capsule, and thalamus suggestive of lucanar infarcts. small infarct in left basal ganglia Seizure and aspiration precautions DM Linagliptin/Metformin HCL 2.5mg/1000mg PO BID - hold while in hospital Actos 30mg PO daily Levemir/Lantus 10 U SC HS Humalog 6 U ACTID Accuchecks ISS HBA1c 8.7 Hypertension Metoprolol Succinate 25mg PO daily Lisionpril 5mg PO daily Monitor BP HLD Crestor 10mg PO HS Hx. CABG Aspirin 81 mg PO daily BPH Flomax 0.4 mg PO HS, Prophylactic Measures Pepcid 20mg PO BID Heparin 5, 000 U SC Q8 PT/OT Social work <Adilson Dowling - Last Filed: 09/27/16 15:31> Objective - Vital Signs/Intake and Output Vital Signs (last 24 hours): Temp Pulse Resp BP Pulse Ox 98.4 F 76 20 116/70 96 09/27/16 08:06 09/27/16 08:06 09/27/16 08:06 09/27/16 08:06 09/27/16 08:06 Intake and Output: 09/27/16 09/27/16 06:59 18:59 Intake Total 0 Output Total 150 Balance -150 - Medications Medications: Current Medications Aspirin (Ecotrin) 81 mg PO DAILY [facility] Last Admin: 09/27/16 09:27 Dose: 81 mg Donepezil HCl (Aricept) 10 mg PO HS [facility] Last Admin: 09/26/16 21:32 Dose: 10 mg Escitalopram Oxalate (Lexapro) 5 mg PO DAILY [facility] Last Admin: 09/27/16 09:28 Dose: 5 mg Famotidine (Pepcid) 20 mg PO BID [facility] Last Admin: 09/27/16 09:27 Dose: 20 mg Haloperidol (Haldol) 2 mg PO Q2 PRN Heparin Sodium (Porcine) (Heparin) 5,000 units SC Q8 [facility] Last Admin: 09/27/16 05:32 Dose: 5,000 units Insulin Aspart (Novolog) 6 unit SC ACTID MARCIN Insulin Detemir (Levemir) 10 unit SC HS [facility] Last Admin: 09/26/16 21:33 Dose: 10 unit Lisinopril (Zestril) 5 mg PO DAILY [facility] Last Admin: 09/27/16 09:27 Dose: 5 mg Mirtazapine (Remeron) 7.5 mg PO HS [facility] Last Admin: 09/26/16 21:32 Dose: 7.5 mg Pioglitazone HCl (Actos) 30 mg PO DAILY [facility] Last Admin: 09/27/16 09:28 Dose: 30 mg Rosuvastatin Calcium (Crestor) 10 mg PO HS [facility] Last Admin: 09/26/16 21:32 Dose: 10 mg Tamsulosin HCl (Flomax) 0.4 mg PO HS [facility] Last Admin: 09/26/16 21:32 Dose: 0.4 mg - Labs Labs: 09/27/16 07:19 09/27/16 07:19 Attending/Attestation - Attestation I have personally seen and examined this patient.: Yes I have fully participated in the care of the patient.: Yes I have reviewed all pertinent clinical information, including history, physical exam and plan: Yes Notes (Text): Medical attending: Patient was seen and examined by me, agrees the above note by medical cost consultant. I spoke with the patient's primary care physician over the phone today and gave an update with regards the situation. The patient requires a lot of assistance during PT/OT. From what I'm being told so far no place has accepted him for rehabilitation. Thank you very much, Adilson Dowling
[2016-09-27 07:38] LABS: BASO # 0.1 K/uL (0.0-0.2); EOS # 0.3 K/uL (0.0-0.7); EOS % 2.7 % (0.0-4.0); HEMATOCRIT 36.6 % (35.0-51.0); LYMPH # 1.7 K/uL (1.0-4.3); LYMPH % 16.1 % (20.0-40.0); MEAN CELL VOLUME 87.1 fL (80.0-94.0); MEAN CORPUSCULAR HEMOGLOBIN 28.8 pg (27.0-31.0); MEAN PLATELET VOLUME 8.8 fL (7.2-11.7); MONO # 0.7 K/uL (0.0-0.8); MONO % 6.4 % (0.0-10.0); RED CELL DISTRIBUTION WIDTH 13.9 % (11.5-14.5); WHITE BLOOD COUNT 10.7 K/uL (4.8-10.8)
[2016-09-27 07:42] LABS: CHLORIDE 106 mmol/L (98-107)
[2016-09-27 07:43] LABS: POTASSIUM 3.8 mmol/L (3.6-5.2); SODIUM 139 mmol/L (132-148)
[2016-09-27 07:45] LABS: GFR AFRICAN-AMERICAN > 60
[2016-09-27 07:46] LABS: BLOOD UREA NITROGEN 12 mg/dL (9-20); CALCIUM 8.4 mg/dl (8.6-10.4); CARBON DIOXIDE 26 mmol/L (22-30); GLUCOSE,RANDOM 150 mg/dL (75-110)
[2016-09-27] MEDS: (Novolog) Insulin Aspart, Recombinant 100 u/ml 10 ml vial SC SCH ×3 (08:14→16:53)
[2016-09-27] MEDS: Insulin Detemir 100 units/ml Vial (Levemir) SC SCH (21:59)
[2016-09-28] MEDS: (Novolog) Insulin Aspart, Recombinant 100 u/ml 10 ml vial SC SCH ×3 (08:31→18:10)
--- NOTE | 2016-09-28 08:52 | PCM.PYCHPN ---
Psychiatric Progress Note - Psychiatric Progress Note Patient seen today, length of contact: 15 min Patient Chief Complaint: "Tired" Problems Identified/Issues Discussed: Patient seen, chart reviewed, case discussed with nurse. Staff gum puller used to converse with patient. His was present and she is interviewed too. Still forgetful, inattentive, lethargic. Claims he is not depressed but his disagrees. More oriented today but again his says it comes and goes Support given to both. Medication Change: No Medical Record Reviewed: Yes Mental Status Examination - Cognitive Function Orientation: Person Memory: Impaired Attention: Poor Concentration: Poor Association: Loose Fund of Knowledge: Poor - Mood Mood: Depressed, Anxious - Affect Affect: Blunted - Speech Speech: Slurred, Soft - Formal Thought Process Formal Thought Process: Loosening of associations - Suicidal Ideation Suicidal Ideation: No - Homicidal Ideation Homicidal Ideation: No Goal/Treatment Plan - Goal/Treatment Plan Need for Continued Stay: Remain at risks for inpatient hospitalization, Discharge may exacerbated symptoms Progress Toward Problem(s) and Goals/Treatment Plan: Depression - Lexapro 5 mg PO daily - Continue remeron 7.5 mg PO HS MARCIN - Support and psychoeducation Dementia: - Continue Aricept 10 mg PO HS MARCIN - lexapro should help - Close observation - Frequent support and orientation - should apply for guardianship - check vitamin levels, tsh, rpr...
--- NOTE | 2016-09-28 17:37 | CP.PCM.DIS ---
Provider - Provider Date of Admission: 09/20/16 10:15 Attending physician: Winston Dale MD Primary care physician: Dr. Ovalle Consults[facility] Time Spent in preparation of Discharge (in minutes): 35 Hospital Course - Lab Results Lab Results: Most Recent Lab Values WBC 10.7 K/uL (4.8-10.8) 09/27/16 07:19 RBC 4.20 Mil/uL (4.40-5.90) L 09/27/16 07:19 Hgb 12.1 g/dL (12.0-18.0) 09/27/16 07:19 Hct 36.6 % (35.0-51.0) 09/27/16 07:19 MCV 87.1 fL (80.0-94.0) 09/27/16 07:19 MCH 28.8 pg (27.0-31.0) 09/27/16 07:19 MCHC 33.0 g/dL (33.0-37.0) 09/27/16 07:19 RDW 13.9 % (11.5-14.5) 09/27/16 07:19 Plt Count 263 K/uL (130-400) 09/27/16 07:19 MPV 8.8 fL (7.2-11.7) 09/27/16 07:19 Neut % (Auto) 73.8 % (50.0-75.0) 09/27/16 07:19 Lymph % (Auto) 16.1 % (20.0-40.0) L 09/27/16 07:19 [place] % (Auto) 6.4 % (0.0-10.0) 09/27/16 07:19 Eos % (Auto) 2.7 % (0.0-4.0) 09/27/16 07:19 Baso % (Auto) 1.0 % (0.0-2.0) 09/27/16 07:19 Neut # 7.9 K/uL (1.8-7.0) H 09/27/16 07:19 Lymph # 1.7 K/uL (1.0-4.3) 09/27/16 07:19 [place] # 0.7 K/uL (0.0-0.8) 09/27/16 07:19 Eos # 0.3 K/uL (0.0-0.7) 09/27/16 07:19 Baso # 0.1 K/uL (0.0-0.2) 09/27/16 07:19 pO2 24 mm/Hg (30-55) L 09/20/16 08:41 VBG pH 7.32 (7.32-7.43) 09/20/16 08:41 VBG pCO2 54 mmHg (40-60) 09/20/16 08:41 VBG HCO3 23.8 mmol/L 09/20/16 08:41 VBG Total CO2 29.5 mmol/L (22-28) H 09/20/16 08:41 VBG O2 Sat (Calc) 50.6 % (40-65) 09/20/16 08:41 VBG Base Excess 0.7 mmol/L (0.0-2.0) 09/20/16 08:41 VBG Potassium 4.8 mmol/L (3.6-5.2) 09/20/16 08:41 Sodium 140.0 mmol/l (132-148) 09/20/16 08:41 Chloride 110.0 mmol/L (98-107) H 09/20/16 08:41 Glucose 98 mg/dl (75-110) 09/20/16 08:41 Lactate 0.9 mmol/L (0.7-2.1) 09/20/16 08:41 Sodium 139 mmol/L (132-148) 09/27/16 07:19 Potassium 3.8 mmol/L (3.6-5.2) 09/27/16 07:19 Chloride 106 mmol/L (98-107) 09/27/16 07:19 Carbon Dioxide 26 mmol/L (22-30) 09/27/16 07:19 Anion Gap 10 (10-20) 09/27/16 07:19 BUN 12 mg/dL (9-20) 09/27/16 07:19 Creatinine 0.9 MG/DL (0.8-1.5) 09/27/16 07:19 Est GFR ( Amer) > 60 09/27/16 07:19 Est GFR (Non-Af Amer) > 60 09/27/16 07:19 POC Glucose (mg/dL) 266 mg/dL (65-110) H 09/28/16 16:36 Random Glucose 150 mg/dL (75-110) H 09/27/16 07:19 Hemoglobin A1c 8.7 % (4.2-6.5) H 09/21/16 06:58 Calcium 8.4 mg/dl (8.6-10.4) L 09/27/16 07:19 Phosphorus 2.9 mg/dL (2.5-4.5) 09/23/16 11:14 Magnesium 1.7 mg/dL (1.6-2.3) 09/26/16 07:41 Total Bilirubin 0.5 mg/dL (0.2-1.3) 09/26/16 07:41 AST 22 U/L (17-59) 09/26/16 07:41 ALT 19 U/L (21-72) L 09/26/16 07:41 Alkaline Phosphatase 62 U/L (38-126) 09/26/16 07:41 Total Creatine Kinase 29 U/L (55-170) L 09/21/16 06:58 CK-MB (Mass) 1.09 ng/mL (0.0-3.38) 09/21/16 06:58 Troponin I, Quant 0.0320 ng/mL (0.00-0.120) 09/21/16 06:58 Total Protein 6.0 g/dL (6.3-8.3) L 09/26/16 07:41 Albumin 2.9 g/dL (3.5-5.0) L 09/26/16 07:41 Globulin 3.1 gm/dL (2.2-3.9) 09/26/16 07:41 Albumin/Globulin Ratio 1.0 (1.0-2.1) 09/26/16 07:41 Triglycerides 237 mg/dL (0-149) H 09/21/16 06:58 Cholesterol 152 mg/dL (0-199) 09/21/16 06:58 LDL Cholesterol Direct 88 mg/dL (0-129) 09/21/16 06:58 HDL Cholesterol 23 mg/dL (30-70) L 09/21/16 06:58 Vitamin B12 592 pg/mL (239-931) 09/22/16 07:58 25-OH Vitamin D Total < 12.8 NG/ML (30.0-100.0) L 09/22/16 07:58 RBC Folate 552 ng/mL RBC (>280) 09/22/16 07:58 Free T4 1.48 ng/dL (0.78-2.19) 09/21/16 06:58 TSH 3rd Generation 1.26 mIU/L (0.46-4.68) 09/21/16 06:58 Venous Blood Potassium 4.8 mmol/L (3.6-5.2) 09/20/16 08:41 Urine Color Yellow (YELLOW) 09/20/16 08:59 Urine Clarity Clear (Clear) 09/20/16 08:59 Urine pH 6.0 (5.0-8.0) 09/20/16 08:59 Ur Specific [employer] 1.011 (1.003-1.030) 09/20/16 08:59 Urine Protein Negative mg/dL (NEGATIVE) 09/20/16 08:59 Urine Glucose (UA) Normal mg/dL (Normal) 09/20/16 08:59 Urine Ketones Negative mg/dL (NEGATIVE) 09/20/16 08:59 Urine Blood Negative (NEGATIVE) 09/20/16 08:59 Urine Nitrate Negative (NEGATIVE) 09/20/16 08:59 Urine Bilirubin Negative (NEGATIVE) 09/20/16 08:59 Urine Urobilinogen Normal mg/dL (0.2-1.0) 09/20/16 08:59 Ur Leukocyte Esterase Neg Thelma/uL (Negative) 09/20/16 08:59 Urine WBC (Auto) < 1 /hpf (0-5) 09/20/16 08:59 Urine RBC (Auto) 1 /hpf (0-3) 09/20/16 08:59 Urine Bacteria Rare (<OCC) 09/20/16 08:59 RPR Nonreactive (NONREACTIVE) 09/22/16 07:58 - Hospital Course Hospital Course: PMHx - Dementia HTN, DM2, BPH, Hyperlipidemia, dementia, CVAs (pts and unaware of this diagnosis but CT head suggests otherwise) Surg - CABG in 2008 at [facility] Meds - Trazodone 50mg PO HS, Flomax 0.4 mg PO HS, Actos 30mg PO daily, Remeron 7.5 mg PO HS, , Linagliptin/Metformin HCL 2.5mg/1000mg PO BID, Levemir 10 U SC HS, Humalog 3 U ACTID, Aricept 10mg PO HS, Lipitor 20mg PO daily, Aspirin 81 mg PO daily, Aricept 10mg PO HS Allergies - shell fish Fam Hx - father had "heart issues" Social - used to smoke all of his life 1-2 packs a day quit 2 months ago, denies alcohol use or current drug use, hx of cocaine use many years ago. 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 denies being abused/tortured. states he was jailed "because of the government". pt has a 9th grade education, is on disability. 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 On admission: 66 yr old male, brought in via EMS and is accompanied by , PMHx of dementia, presents to the ER for increasing agitation, violent behavior which start SUPERINTENDENT COLLIERY but has resolved now. Patient was discharged from [facility] 1 week ago and is s/p rehab for leg pain. states patient has had occasional episodes of agitation but now they are increasing and worst was SUPERINTENDENT COLLIERY. states the patient was hitting her and was refusing to get in to the wheel chair and EMS was called. Currently, patient is at baseline. Patient was recently treated for pneumonia. reports non productive cough, residual. Denies fever, nausea, vomiting, decrease appetite or rash. Patient was recently started on aricept. states there is no home health and they had to leave [facility] "due to insurance problems". She was worried about him excessively crying in the morning and was requesting psychiatric eval. She states they saw Dr. Mcnair at [place] but do not have anyone to follow up with. Per patient is not ambulatory and he needs max assist to daily activities. He is able to feed himself. During Hospital Stay: Patient was never noted to be agitated as per 's history. He has advanced dementia and history of CVAs. Psychiatry was consulted and gave Lexapro 5mg PO daily and Haldol 2mg PO Q2 PRN agitation. Remeron 7.5 mg PO HS and Aricept 10mg PO HS were continued, home medications. Chest X ray negative for active disease - no evidence of infiltrate. Blood Cx (6 /8): negative. Urine CX (09/20): Multiple species, probably contaminated. Patient remained afebrile and no did have leukocytosis. Head CT showed: 1. Scattered focal luencies in the subcortical and periventrocular white matter suggestive for severe chronic microvascular ischemia change 2. Multiple focal fer of low attenuation seen within the right torres radiata, basal ganglia, internal capsule, and thalamus suggestive of lucanar infarcts. small infarct in left basal ganglia. He was given Insulin at bed time and with meals and was continued on his home dose of Actos to controlled his blood sugar. Blood pressure was controlled with Metoprolol Succinate 25mg PO daily and Lisionpril 5mg PO daily. DUe to his history of CABG he was given aspirin daily. Patient is stable for discharge to [facility] for technician terminal and repeater detention care. Patient's would like to take the patient home. She is to follow up with Dr. Mcnair or a primary doctor of his choice within 1-2 of discharge for post hospital care. Patient is to resume all of his home medications and also take the following new medications: Lexapro and Lisinopril. His medications are as summarized as below: Linagliptin/Metformin HCL 2.5mg/1000mg PO BID Actos 30mg PO daily Levemir/Lantus Insulin 10 U SC HS - at bedtime Humalog Insulin 6 U ACTID - with meals Metoprolol Succinate 25mg PO daily Lisionpril 5mg PO daily Aspirin 81 mg PO daily Flomax 0.4 mg PO daily Lexapro 5mg PO daily Remeron 7.5 mg PO HS - at bedtime Aricept 10mg PO HS - at bedtime Prescription were written for new medications: Lisionpril and Lexapro. Patient was given prescription for home physical therapy and for adult day care services. He is to follow with his primary care doctor and call insurance to arrange these services. All instructions explained to the patients and she agrees. Discharge Exam - Head Exam Head Exam: ATRAUMATIC, NORMAL INSPECTION - Eye Exam Eye Exam: EOMI, Normal appearance, PERRL Pupil Exam: NORMAL ACCOMODATION - ENT Exam ENT Exam: Mucous Membranes Moist - Respiratory Exam Respiratory Exam: NORMAL BREATHING PATTERN. absent: Accessory Muscle Use, Respiratory Distress - Cardiovascular Exam Cardiovascular Exam: REGULAR RHYTHM, +S1, +S2 - GI/Abdominal Exam GI & Abdominal Exam: Normal Bowel Sounds, Soft. absent: Distended, Firm, Guarding, Tenderness - Extremities Exam Extremities exam: normal inspection - Back Exam Back exam: NORMAL INSPECTION - Neurological Exam Neurological exam: Alert Additional comments: only oriented to self - Psychiatric Exam Psychiatric exam: Normal Affect, Normal Mood - Skin Skin Exam: Dry, Intact, Normal Color, Warm Discharge Plan - Discharge Medications Prescriptions: RX: Escitalopram [Lexapro] 5 mg PO DAILY #30 tab RX: Lisinopril [Zestril] 5 mg PO DAILY #30 tab - Follow Up Plan Condition: STABLE Disposition: NURSING FACILITY MEDICAID CERT Instructions: Lisinopril (By mouth), Escitalopram (By mouth), Dementia (GEN) Additional Instructions: Patient is stable for discharge to [facility] for technician terminal and repeater detention care. Patient's would like to take the patient home. She is to follow up with Dr. Mcnair or a primary doctor of his choice within 1-2 of discharge for post hospital care. Patient is to resume all of his home medications and also take the following new medications: Lexapro and Lisinopril. His medications are as summarized as below: Linagliptin/Metformin HCL 2.5mg/1000mg PO BID Actos 30mg PO daily Levemir/Lantus Insulin 10 U SC HS - at bedtime Humalog Insulin 6 U ACTID - with meals Metoprolol Succinate 25mg PO daily Lisionpril 5mg PO daily Aspirin 81 mg PO daily Flomax 0.4 mg PO daily Lexapro 5mg PO daily Remeron 7.5 mg PO HS - at bedtime Aricept 10mg PO HS - at bedtime Prescription were written for new medications: Lisionpril and Lexapro. Patient was given prescription for home physical therapy and for adult day care services. He is to follow with his primary care doctor and call insurance to arrange these services. All instructions explained to the patients and she agrees. Referrals: Sherry Morales MD [Staff Provider] - Allan Mcnair MD [Staff Provider] -
[2016-09-28 17:50] VITALS: BP 131/71; PULSE 75; TEMP 97.5; O2SAT 94
== END 2016-09-28 21:30 | DRG 884 ==
LOC: C.ER 06:48 → C.9E 10:15 → C.3T 13:49
PROVIDERS: ADMIT Internal Medicine; ATTEND Internal Medicine
DX: F03.91 Unspecified dementia, unspecified severity, with behavioral disturbance (principal); F32.2 Major depressive disorder, single episode, severe without psychotic features; F41.9 Anxiety disorder, unspecified; I10 Essential (primary) hypertension; I25.10 Atherosclerotic heart disease of native coronary artery without angina pectoris; E11.9 Type 2 diabetes mellitus without complications; Z95.1 Presence of aortocoronary bypass graft; Z79.4 Long term (current) use of insulin; F17.210 Nicotine dependence, cigarettes, uncomplicated; R45.1 Restlessness and agitation; N40.0 Benign prostatic hyperplasia without lower urinary tract symptoms; Z79.82 Long term (current) use of aspirin; Z86.73 Personal history of transient ischemic attack (TIA), and cerebral infarction without residual deficits

== ENCOUNTER 2017-01-20 20:08 | Emergency (ER) | payer MEDICARE, MEDICAID ==
[2017-01-20 20:08] VITALS: BMI 22.8
--- NOTE | 2017-01-20 22:06 | CT ---
EXAM: CT Head Without Intravenous Contrast CLINICAL HISTORY: 66 years old, male; Injury or trauma; Fall; Initial encounter; Blunt trauma (contusions or hematomas); Consciousness not specified; Additional info: Fell and hit head TECHNIQUE: Axial computed tomography images of the head/brain without intravenous contrast. All CT scans at this facility use one or more dose reduction techniques, viz.: automated exposure control; ma/kV adjustment per patient size (including targeted exams where dose is matched to indication; i.e. head); or iterative reconstruction technique. Coronal and sagittal reformatted images were created and reviewed. COMPARISON: No relevant prior studies available. FINDINGS: Brain: Atrophy. Bilateral white matter changes. This is nonspecific and may include microangiopathic disease, small lacunae of indeterminate chronicity, chronic infarcts and/or encephalomalacia. Bilateral lacunae. Vascular calcification. No hemorrhage. No edema. Ventricles: No hydrocephalus. Bones: Skull is intact. Sinuses: Partial visualization of significant maxillary sinus disease, fluid level noted.. Mild ethmoid sinus disease. Mastoid air cells: No mastoid effusion. IMPRESSION: No CT evidence of acute intracranial abnormality. Chronic changes as above. Partial visualization of significant maxillary sinus disease, fluid level noted.. Mild ethmoid sinus disease.
--- NOTE | 2017-01-20 22:16 | C.PDOC ---
History Of Present Illness Pt tripped and fell on his way to the bathroom at the group home hitting his head on the ground. - HPI Time Seen by Provider: 01/20/17 20:43 Chief Complaint (Nursing): Trauma History Per: Patient, EMS, Family, Other ([facility] transfer papers) History/Exam Limitations: clinical condition Injury Occurred (Timing): Just Before Arrival Severity: Moderate Additional History Per: Prior Records - Fall Fall:Prior To Injury: Tripped Past Medical History Reviewed: Historical Data, Nursing Documentation, Vital Signs Vital Signs: Last Vital Signs Temp 97.4 F L 01/20/17 20:12 Pulse 76 01/20/17 20:12 Resp 16 01/20/17 20:12 BP 162/91 H 01/20/17 20:12 Pulse Ox 96 01/20/17 20:12 - Medical History PMH: Anxiety, Benign Prostatic Hyperplasia, CAD, Dementia, Depression, Diabetes (type 2), HTN, Hypercholesterolemia Surgical History: CABG - [facility] GROUP PSYCHOTHERAPY (12/31/15) INDIVIDUAL PSYCHOTHERAPY, COGNITIVE-BEHAVIORAL (12/31/15) Family History: States: Unknown Family Hx - Social History Hx Tobacco Use: Yes (heavy smoker) Hx Alcohol Use: No Hx Substance Use: No - Immunization History Hx Tetanus Toxoid Vaccination: No Hx Influenza Vaccination: No Hx Pneumococcal Vaccination: No Review Of Systems Constitutional: Negative for: Fever Cardiovascular: Negative for: Chest Pain Respiratory: Negative for: Shortness of Breath Gastrointestinal: Negative for: Vomiting, Abdominal Pain Musculoskeletal: Negative for: Neck Pain Neurological: Negative for: Weakness, Numbness, Seizures Physical Exam - Physical Exam Appears: Non-toxic, No Acute Distress, Chronically Ill Skin: Normal Color, Warm, Dry Head: Atraumatic Eye(s): bilateral: PERRL, EOMI Neck: Normal ROM, No Midline Cervical Tenderness, No Step Off Deformity, Supple Chest: Symmetrical, No Deformity Cardiovascular: Rhythm Regular Respiratory: Normal Breath Sounds, No Accessory Muscle Use Gastrointestinal/Abdominal: Soft, No Tenderness Back: No Vertebral Tenderness Extremity: Normal ROM, No Deformity Neurological/Psych: Normal Motor ED Course And Treatment O2 Sat by Pulse Oximetry: 96 Pulse Ox Interpretation: Normal - Radiology Nexus Criteria: Negative - CT Scan/US CT head Other Rad Studies (CT/US): Read By Radiologist, Radiology Report Reviewed CT/US Interpretation: IMPRESSION: No CT evidence of acute intracranial abnormality. Chronic changes as above. Reassessment Condition: Improved Disposition Counseled Patient/Family Regarding: Studies Performed, Diagnosis, Need For Followup - Disposition Referrals: Allan Mcnair MD [Staff Provider] - Disposition: TRANSF TO SNF Disposition Time: 22:16 Condition: STABLE Additional Instructions: Follow up with your doctor. Return to the ER if you develop vomiting, weakness, numbness, confusion, worsening of symptoms or if you have any other concerns. Instructions: Head Injury (ED), Fall Prevention for Older Adults (ED) - Clinical Impression Clinical Impression: Fall at group home, Minor head injury
[2017-01-21 00:07] VITALS: BP 164/79; PULSE 77; RESP 18; TEMP 98; O2SAT 95
== END 2017-01-21 00:17 ==
LOC: C.ER 20:08
DX: S09.90XA Unspecified injury of head, initial encounter (principal); W01.0XXA Fall on same level from slipping, tripping and stumbling without subsequent striking against object, initial encounter; Y92.121 Bathroom in nursing home as the place of occurrence of the external cause